=== PATIENT | male | born 1955 | race Caucasian/White ===

== ENCOUNTER 2016-11-09 13:58 | Inpatient (IN) | payer OTHER ==
[~2016-11-09] VITALS: Ht 195.6 cm; Wt 107.9 kg
[2016-11-09] MEDS ORDERED: NITROGLYCERIN OINT 2% 1GM PACKET ONE (14:03)
[2016-11-09] MEDS ORDERED: NITROGLYCERIN OINT 2% 1GM PACKET EXT ONE (14:15)
[2016-11-09 14:20] LABS: COMPLETE YES; EOS % 0.2 %; HEMATOCRIT 42.8 % (42-52); IG% 0.2 %; LYMPH % 11.3 %; LYMPH ABS # 1.27 K/uL (1.2-3.4); MEAN CELL VOLUME 99.8 fL (80-100); MEAN PLATELET VOLUME 9.1 fL (7.4-10.4); NEUT % 78.3 %; PLATELET COUNT 128 K/uL (130-400); RED BLOOD COUNT 4.29 M/uL (4.7-6.1); WHITE BLOOD COUNT 11.22 K/uL (4.8-10.8)
[2016-11-09 14:25] LABS: ISTAT IONIZED CALCIUM 1.14 mmol/l (1.12-1.32)
--- NOTE | 2016-11-09 14:26 | DIAGNOSTIC IMAGING REPORT ---
CHEST ONE VIEW PORTABLE CLINICAL HISTORY: Chest pain. COMPARISON STUDY: No previous studies for comparison. FINDINGS: Lung volumes are normal. There is no pneumothorax or pleural effusion. There is no evidence of pulmonary edema. There is mild cardiomegaly. No consolidation is identified. Mediastinal contours are normal. IMPRESSION: 1. No acute cardiopulmonary findings. 2. Mild cardiomegaly. Electronically signed by: Vinod Huston M.D. 11/09/2016 2:24 PM Dictated Date/Time: 11/09/2016 2:22 PM
[2016-11-09 14:31] LABS: PROTHROMBIN TIME (PATIENT) 10.6 SECONDS (9.0-12.0)
[2016-11-09 14:39] LABS: BUN/CREATININE RATIO 11.7 (10-20); CALCIUM 9.3 mg/dl (8.5-10.1); CREATININE 1.2 mg/dl (0.60-1.40); POTASSIUM 4.1 mmol/L (3.5-5.1)
[2016-11-09 14:45] VITALS: O2SAT 96; Ht 195.6 cm; Wt 107.9 kg
[2016-11-09] MEDS ORDERED: ASPIRIN 324 MG CHEW PO STA (14:47)
[2016-11-09] MEDS ORDERED: HEPARIN 25000 UNIT/500 ML D5W ONE (15:14)
[2016-11-09] MEDS ORDERED: HEPARIN SOD 5000 UNIT/0.5 ML CARP ONE (15:15)
[2016-11-09] MEDS ORDERED: MoRPHine SULFATE 2 MG/ML CARP IV PRN (15:30)
[2016-11-09] MEDS ORDERED: NITROGLYCERIN 0.4 MG SL PER TAB CHARGE SL PRN (15:30)
[2016-11-09] MEDS ORDERED: ONDANSETRON INJ 2 MG/ML 2 ML VIAL IV PRN (15:30)
[2016-11-09] MEDS ORDERED: METOPROLOL TARTRATE 25 MG TAB PO ONE (15:57)
--- NOTE | 2016-11-09 16:00 | History and Physical ---
History & Physical Date & Time of Service: Nov 09, 2016 at 15:42 Chief Complaint: Chest Pain Primary Care Physician: No Doctor, Assigned History of Present Illness Source: patient, family (daughter and at bedside) Mr Alejandro is a 61 yo male with no past medical or surgical history, ex-smoker ( 15 pack-years), currently chews tobacco who does not have any routine preventative medical care. Presented to his PCP today after developing what felt like heartburn yesterday and shortness of breath, EKG showed inferior STEMI , he was given 324mg aspirin and transferred to the ER. His symptoms started yesterday approximately 9:30am with shortness of breath and throat tightness that occurred while pulling a deer he had shot. The throat tightness he related to breathing cold air or heartburn pain. He took some tums and think it helped a little, exacerbated by lying down and no worse on exertion , severity at worse 3/10, the pain lasted throughout the entire yesterday without much waxing and waning and he has not had a recurrence today. His shortness of breath came on initially at at the same time, this was worse on even mild exertion and occurred at rest. He denies any orthopnea or PND that night. This morning he felt generally more tired than usual but denies shortness of breath, chest pain, orthopnea, PND, claudication or palpitations. Past Medical/Surgical History Medical Problems: (1) HTN (hypertension) Status: Chronic Social History Smoking Status: Former Smoker Smokeless Tobacco Use: Yes Alcohol Use: 1 can beer/day, occasional spirits once/month Drug Use: none Marital Status: Housing status: lives with significant other Allergies Coded Allergies: No Known Allergies (Unverified , 11/09/16) Review of Systems Constitutional: + sweats (see HPI), No chills, No fever Eyes: No worsening of vision Respiratory: + dyspnea at rest, + dyspnea on exertion, + shortness of breath, No cough, No hemoptysis, No sputum, No wheezing Cardiovascular: No PND, No chest pain (currently no chest pain), No claudication, No edema, No orthopnea, No palpitations Abdomen: No GI bleeding, No constipation, No diarrhea, No nausea, No pain, No vomiting Musculoskeletal: No joint pain, No muscle pain, No swelling Genitourinary - Male: No dysuria, No hematuria, No urinary frequency, No urinary urgency Endocrine: + fatigue (see HPI) Hematologic / Lymphatic: No abnormal bleeding/bruising Integumentary: No itch, No rash Physical Exam Vital Signs Date Time Temp Pulse Resp B/P Pulse Ox O2 Delivery O2 Flow Rate FiO2 11/09/16 14:45 96 Room Air 11/09/16 14:33 82 15 96 11/09/16 14:28 76 15 161/98 97 11/09/16 14:23 81 15 99 11/09/16 14:18 84 16 99 11/09/16 14:13 86 19 98 11/09/16 14:08 95 21 97 11/09/16 14:07 152/99 11/09/16 14:06 97 Room Air 11/09/16 14:03 95 11/09/16 14:03 87 18 97 11/09/16 13:59 175/106 11/09/16 13:57 98 Room Air 11/09/16 13:57 36.7 91 18 175/106 98 Room Air General Appearance: WD/WN, no apparent distress Head: normocephalic, atraumatic Eyes: normal inspection, PERRL, EOMI, sclerae normal ENT: normal ENT inspection, hearing grossly normal Neck: supple, no adenopathy, thyroid normal, no JVD, no carotid bruits, trachea midline Respiratory/Chest: chest non-tender, lungs clear, normal breath sounds, no respiratory distress, no accessory muscle use Cardiovascular: regular rate, rhythm, no edema, no JVD, no murmur, normal peripheral pulses Abdomen/GI: normal bowel sounds, non tender, soft, no organomegaly Back: normal inspection, no muscle spasm, + pertinent finding (no central spine tenderness) Extremities/Musculoskelatal: normal inspection, no calf tenderness, normal capillary refill, no pedal edema, normal range of motion, non-tender Neurologic/Psych: 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, no motor/sensory deficits, alert, normal mood/affect, oriented x 3 Skin: normal color, warm/dry, no rash Diagnostics Laboratory Results Results Past 24 Hours Test 11/09/16 14:05 11/09/16 14:09 11/09/16 14:12 11/09/16 15:36 Range/Units White Blood Count 11.22 4.8-10.8 K/uL Red Blood Count 4.29 4.7-6.1 M/uL Hemoglobin 15.0 14.0-18.0 g/dL Hematocrit 42.8 42-52 % Mean Corpuscular Volume 99.8 80-100 fL Mean Corpuscular Hemoglobin 35.0 25-34 pg Mean Corpuscular Hemoglobin Concent 35.0 32-36 g/dl Platelet Count 128 130-400 K/uL Mean Platelet Volume 9.1 7.4-10.4 fL Neutrophils (%) (Auto) 78.3 % Lymphocytes (%) (Auto) 11.3 % Monocytes (%) (Auto) 10.0 % Eosinophils (%) (Auto) 0.2 % Basophils (%) (Auto) 0.0 % Neutrophils # (Auto) 8.79 1.4-6.5 K/uL Lymphocytes # (Auto) 1.27 1.2-3.4 K/uL Monocytes # (Auto) 1.12 0.11-0.59 K/uL Eosinophils # (Auto) 0.02 0-0.5 K/uL Basophils # (Auto) 0.00 0-0.2 K/uL RDW Standard Deviation 45.8 36.4-46.3 fL RDW Coefficient of Variation 12.7 11.5-14.5 % Immature Granulocyte % (Auto) 0.2 % Immature Granulocyte # (Auto) 0.02 0.00-0.02 K/uL Prothrombin Time 10.6 9.0-12.0 SECONDS Prothromb Time International Ratio 1.0 0.9-1.1 Activated Partial Thromboplast Time 26.5 21.0-31.0 SECONDS Partial Thromboplastin Ratio 1.0 Sodium Level 139 136-145 mmol/L Potassium Level 4.1 3.5-5.1 mmol/L Chloride Level 103 98-107 mmol/L Carbon Dioxide Level 28 21-32 mmol/L Anion Gap 8.0 18.0 16-25 mmol/L Blood Urea Nitrogen 14 7-18 mg/dl Creatinine 1.20 0.60-1.40 mg/dl Est Creatinine Clear Calc Drug Dose 79.4 ml/min Estimated GFR () 74.1 Estimated GFR (Non- 64.0 BUN/Creatinine Ratio 11.7 10-20 Random Glucose 111 70-99 mg/dl Calcium Level 9.3 8.5-10.1 mg/dl Bedside Hemoglobin 15.0 14.0-18.0 g/dl Bedside Hematocrit 44 42-52 % Bedside Sodium 139 135-144 mEq/L Bedside Potassium 4.2 3.3-5.0 mEq/L Bedside Chloride 100 101-112 mEq/L Bedside Total CO2 27 24-31 mEq/l Bedside Blood Urea Nitrogen 15 7-18 mg/dl Bedside Creatinine 1.0 0.6-1.3 mg/dl Bedside Glucose (other) 113 70-99 mg/dl Bedside Ionized Calcium (Darlin) 1.14 1.12-1.32 mmol/l Bedside Troponin I 40.560 0-0.045 ng/ml Diagnostic Radiology CHEST ONE VIEW PORTABLE CLINICAL HISTORY: Chest pain. COMPARISON STUDY: No previous studies for comparison. FINDINGS: Lung volumes are normal. There is no pneumothorax or pleural effusion. There is no evidence of pulmonary edema. There is mild cardiomegaly. No consolidation is identified. Mediastinal contours are normal. IMPRESSION: 1. No acute cardiopulmonary findings. 2. Mild cardiomegaly. Electronically signed by: Vinod Huston M.D. 11/09/2016 2:24 PM Dictated Date/Time: 11/09/2016 2:22 PM EKG Normal sinus rhythm Inferior STEMI No previous ECGs available 89 bpm Impression Assessment and Plan 61 yo male without routine preventative care with heartburn like pain yesterday and shortness of breath on exertion presented to the ER with EKG showing inferior STEMI and raised troponin. STEMI - Consult cardiology - ER discussed with Dr Zavala and decided for heparin drip only. I also discussed with Dr Adan who will review chart to assess for emergent cath vs. tomorrow given no current symptoms. - Start heparin drip as per cardiology advice. - Echocardiogram stat now - Trend troponin - next at 16:00 if continues to rise will add Q8H otherwise repeat with morning labs - ASA 324mg given in primary care setting. 81mg daily starting tomorrow - Atorvastatin 80mg daily - Will start metoprolol 25 mg BID now given HTN - Fasting lipid panel and HbA1C with morning labs - Tobacco chew cessation - NPO except meds until seen by Dr Adan Hypertension - Start metoprolol 25 mg BID VTE Prophylaxis - on heparin drip Code - Full Disposition - Admission to telemetry due to s/p STEMI I agree with residents assessment and plan Pt presents with STEMI Asymptomatic at this time CVS - RRR, no m/r/g Cards consulted Likely cath in AM Level of Care Telemetry Advanced Directives Existing Advance Directive: Yes Existing Living Will: Yes 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 Y/N: Yes Risk Level: Moderate Given or contraindicated: Other Anticoagulation (heparin IV)
[2016-11-09 16:48] VITALS: BP 134/94; PULSE 85; TEMP 38; O2SAT 97
[2016-11-09] MEDS ORDERED: HEPARIN 25,000 UNIT/500ML D5W 500 ML IV PRN (18:00)
--- NOTE | 2016-11-09 19:19 | EMERGENCY ROOM VISIT NOTE ---
History Report prepared by Larryibaliya: Jeremiah Sanford Under the Supervision of: Dr. Tom Yun M.D. First contact with patient: 13:58 Chief Complaint: CHEST PAIN Stated Complaint: CHEST PAIN History of Present Illness The patient is a 61 year old male who presents to the Emergency Room with complaints of resolved chest discomfort that occurred yesterday. He describes that discomfort as an indigestion feeling in the middle of his upper chest. The patient was also diaphoretic and short of breath. The discomfort did not radiate to his arm or jaw. The patient's was getting ready to skin a deer when his symptoms began. He was dragging the deer prior to onset. The chest discomfort lasted about 6-8 hours, and resolved overnight. The patient is currently asymptomatic. He has not had any chest discomfort today. The patient denies any fevers, cough, abdominal pain, leg swelling or pain. He followed up with his PCP today, who referred him to the ED for an abnormal EKG. The patient has a history of hypertension. He denies any known family history of heart disease. Source of History: patient Onset: yesterday Position: chest Quality: other ("indigestion") Timing: resolved Associated Symptoms: + SOB, + diaphoresis, No abdominal pain, No cough, No fevers Review of Systems See HPI for pertinent positives & negatives. A total of 10 systems reviewed and were otherwise negative. Past Medical & Surgical Medical Problems: (1) Chest pain (2) HTN (hypertension) (3) Shortness of breath (4) STEMI (ST elevation myocardial infarction) Family History No family history of cardiac disease Social History Smoking Status: Former Smoker Allergies Coded Allergies: No Known Allergies (Unverified , 11/09/16) Physical Exam Vital Signs Date Time Temp Pulse Resp B/P Pulse Ox O2 Delivery O2 Flow Rate FiO2 11/09/16 15:28 159/102 11/09/16 15:08 85 16 97 11/09/16 14:58 161/99 11/09/16 14:45 96 Room Air 11/09/16 14:38 80 15 96 11/09/16 14:33 82 15 96 11/09/16 14:28 76 15 161/98 97 11/09/16 14:23 81 15 99 11/09/16 14:18 84 16 99 11/09/16 14:13 86 19 98 11/09/16 14:08 95 21 97 11/09/16 14:07 152/99 11/09/16 14:06 97 Room Air 11/09/16 14:03 95 11/09/16 14:03 87 18 97 11/09/16 13:59 175/106 11/09/16 13:57 98 Room Air 11/09/16 13:57 36.7 91 18 175/106 98 Room Air Physical Exam Constitutional: Vital signs reviewed. Eyes: Pupils are equal round reactive to light. Conjunctiva are noninjected. ENT: Pharynx is clear without erythema or exudate. Mucous membranes are moist. Neck supple without meningeal signs. Respiratory: Clear to auscultation bilaterally. Breath sounds are equal bilaterally. Cardiovascular: Regular rate and rhythm. No rubs or gallops. GI: Soft, nondistended and nontender. Bowel sounds are present. Musculoskeletal: No peripheral edema. No lower extremity tenderness. Integumentary: No cyanosis. Neurological: The patient is awake and alert. No focal deficits. Psychiatric: Normal affect. Medical Decision & Procedures ER Provider Diagnostic Interpretation: X-ray results as stated below per interpretation by me and the radiologist: CHEST ONE VIEW PORTABLE CLINICAL HISTORY: Chest pain. COMPARISON STUDY: No previous studies for comparison. FINDINGS: Lung volumes are normal. There is no pneumothorax or pleural effusion. There is no evidence of pulmonary edema. There is mild cardiomegaly. No consolidation is identified. Mediastinal contours are normal. IMPRESSION: 1. No acute cardiopulmonary findings. 2. Mild cardiomegaly. Electronically signed by: Vinod Huston M.D. 11/09/2016 2:24 PM Dictated Date/Time: 11/09/2016 2:22 PM Laboratory Results 11/09/16 14:05 Red Blood Count 4.29, Mean Corpuscular Volume 99.8, Mean Corpuscular Hemoglobin 35.0, Mean Corpuscular Hemoglobin Concent 35.0, Mean Platelet Volume 9.1, Neutrophils (%) (Auto) 78.3, Lymphocytes (%) (Auto) 11.3, Monocytes (%) (Auto) 10.0, Eosinophils (%) (Auto) 0.2, Basophils (%) (Auto) 0.0, Neutrophils # (Auto ) 8.79, Lymphocytes # (Auto) 1.27, Monocytes # (Auto) 1.12, Eosinophils # (Auto ) 0.02, Basophils # (Auto) 0.00 11/09/16 14:05 Test 11/09/16 14:05 11/09/16 14:09 11/09/16 14:12 White Blood Count 11.22 K/uL (4.8-10.8) Red Blood Count 4.29 M/uL (4.7-6.1) Hemoglobin 15.0 g/dL (14.0-18.0) Hematocrit 42.8 % (42-52) Mean Corpuscular Volume 99.8 fL (80-100) Mean Corpuscular Hemoglobin 35.0 pg (25-34) Mean Corpuscular Hemoglobin Concent 35.0 g/dl (32-36) Platelet Count 128 K/uL (130-400) Mean Platelet Volume 9.1 fL (7.4-10.4) Neutrophils (%) (Auto) 78.3 % Lymphocytes (%) (Auto) 11.3 % Monocytes (%) (Auto) 10.0 % Eosinophils (%) (Auto) 0.2 % Basophils (%) (Auto) 0.0 % Neutrophils # (Auto) 8.79 K/uL (1.4-6.5) Lymphocytes # (Auto) 1.27 K/uL (1.2-3.4) Monocytes # (Auto) 1.12 K/uL (0.11-0.59) Eosinophils # (Auto) 0.02 K/uL (0-0.5) Basophils # (Auto) 0.00 K/uL (0-0.2) RDW Standard Deviation 45.8 fL (36.4-46.3) RDW Coefficient of Variation 12.7 % (11.5-14.5) Immature Granulocyte % (Auto) 0.2 % Immature Granulocyte # (Auto) 0.02 K/uL (0.00-0.02) Prothrombin Time 10.6 SECONDS (9.0-12.0) Prothromb Time International Ratio 1.0 (0.9-1.1) Activated Partial Thromboplast Time 26.5 SECONDS (21.0-31.0) Partial Thromboplastin Ratio 1.0 Est Creatinine Clear Calc Drug Dose 79.4 ml/min Estimated GFR () 74.1 Estimated GFR (Non- 64.0 BUN/Creatinine Ratio 11.7 (10-20) Calcium Level 9.3 mg/dl (8.5-10.1) Magnesium Level 2.4 mg/dl (1.8-2.4) Bedside Hemoglobin 15.0 g/dl (14.0-18.0) Bedside Hematocrit 44 % (42-52) Bedside Sodium 139 mEq/L (135-144) Bedside Potassium 4.2 mEq/L (3.3-5.0) Bedside Chloride 100 mEq/L (101-112) Bedside Total CO2 27 mEq/l (24-31) Anion Gap 18.0 mmol/L (16-25) Bedside Blood Urea Nitrogen 15 mg/dl (7-18) Bedside Creatinine 1.0 mg/dl (0.6-1.3) Bedside Glucose (other) 113 mg/dl (70-99) Bedside Ionized Calcium (Darlin) 1.14 mmol/l (1.12-1.32) Bedside Troponin I 40.560 ng/ml (0-0.045) Laboratory results as reviewed by me. Medications Administered Medications (Trade) Dose Ordered Sig/Tyrone Route Start Time Stop Time Status Last Admin Dose Admin Nitroglycerin (Nitroglycerin 2% Oint) 1 inch NOW ONCE EXT 11/09/16 14:15 11/09/16 14:16 DC 11/09/16 14:12 1 INCH Heparin Sodium/ Dextrose 1 ea NOW STAT N/A 11/09/16 14:39 11/09/16 14:40 DC 11/09/16 15:15 1 EA Heparin Sodium/ Dextrose (Heparin 25,000 Unit/500ml D5W) 25,000 unit STK-MED ONCE .ROUTE 11/09/16 15:14 11/09/16 15:16 DC 11/09/16 15:22 25,000 UNIT Heparin Sodium (Porcine) (Heparin Sq 5000 Unit/0.5ml) 10,000 unit STK-MED ONCE .ROUTE 11/09/16 15:15 11/09/16 15:16 DC 11/09/16 15:19 8,000 UNIT ECG Indication: chest pain Rate (beats per minute): 89 Rhythm: normal sinus Findings: Q waves (Inferior), ST depression (I, AvL, V2), ST elevation (III, AvF) ED Course 1355: The patient was evaluated in room A1. A complete history and physical exam was performed. 1415: Nitroglycerin 2% 1 inch EXT. 1416: The patient is not having any symptoms. His blood pressure has also improved. 1436: Discussed the case with Dr. Zavala, [employer]. He says there is nothing to do at this point other than start the patient on Heparin and admit him to medicine. 1439: Heparin Sodium / Dextrose 1 ea. 1442: Spoke with Dr. Reynolds, [facility] hospitalist. The patient will be evaluated. 1508: Checked on the patient. His vital signs were stable. He is being evaluated by [facility]. Medical Decision This is a 61-year-old male presents with chest pain. Differential diagnosis includes acute IA, unstable angina, pneumothorax, pleurisy, pneumonia. I did perform a limited focused review of portions of the patient's old chart on the electronic medical record. The patient has had no prior visits to this hospital. I did provide prehospital medical command from patient. He does have Q waves inferiorly with ST elevations on prehospital EKG. I did not call a heart alert as the patient was completely asymptomatic. I did evaluate the patient immediately on arrival as noted above. He remains asymptomatic. The patient was placed on a continuous monitor technician. I did order and personally review the patient's 12-lead EKG and chest x-ray as described above. He has persistent ST elevations and Q waves in the inferior leads. There are some ST depressions in the lateral leads as well as V2. Again I did not call a heart alert as the patient is asymptomatic. Symptoms completely resolved yesterday. I did order and review the patient's blood work as noted in the electronic medical record. His troponin is 40. I did consult Dr. Zavala of cardiology. I did discuss the test results and EKG findings with him. As the patient was asymptomatic he does not feel he needed acute intervention nor stat echocardiogram. He recommended heparinization and hospitalization by the hospitalist service. I did reassess the patient multiple times. He remained asymptomatic here in the emergency department. He was given nitroglycerin paste. I did discuss risks and benefits of heparinization with the patient and his family was not the bedside. I did start patient on IV heparin. He was admitted to the hospitalist service. Consults Time Called: 1430 Consulting Physician: Dr. Zavala, [employer] Returned Call: [phone]: Discussed the case with Dr. Zavala, [employer]ting [employer]. He says there is nothing to do at this point other than start the patient on Heparin and admit him to medicine. Additional Consults: Time Called: 1438 Consulted Physician[facility]. [facility], [facility] Returned Call: [phone] Additional Comments: 1442: Spoke with Dr. Reynolds, [facility]. The patient will be evaluated. Impression Primary Impression: Acute myocardial infarction Critical Care I have personally spent greater than 30 minutes of critical care time in the direct management of this patient. This includes bedside care, interpretation of diagnostic studies, and testing, discussion with consultants, patient, and family members, and other required patient management activities. This 30 minutes is in excess of all separately billable procedures. Scribe Attestation The scribe's documentation has been prepared under my direct and personally reviewed by me in its entirety. I confirm that the note above accurately reflects all work, treatment, procedures, and medical decision making performed by me. Departure Information Dispostion Being Evaluated By Hospitalist Patient Instructions A Signature Page, [facility]
[2016-11-09 19:35] VITALS: BP 119/73; PULSE 84; TEMP 36.4; O2SAT 97
[2016-11-09] MEDS: ATORVASTATIN 40 MG TAB PO SCH (19:37)
[2016-11-09 20:00] VITALS: O2SAT 97
[2016-11-09 22:04] LABS: PARTIAL THROMBOPLASTIN RATIO 2.8
[2016-11-09] MEDS: ACETAMINOPHEN 325 MG TAB PO PRN (22:05)
[2016-11-09 23:58] VITALS: BP 117/72; PULSE 67; TEMP 36.7; O2SAT 95
[2016-11-10] VITALS (17 sets, daily range): BP systolic 94–161; BP diastolic 7–88; PULSE 64–82; TEMP 36.5–37.9; O2SAT 95–99
[2016-11-10 04:10] LABS: HEMATOCRIT 37.3 % (42-52); MEAN CELL VOLUME 100.5 fL (80-100); MEAN CORPUSCULAR HEMOGLOBIN 35.3 pg (25-34); MEAN CORPUSCULAR HGB CONC 35.1 g/dl (32-36); MEAN PLATELET VOLUME 9.4 fL (7.4-10.4); PLATELET COUNT 115 K/uL (130-400); RED BLOOD COUNT 3.71 M/uL (4.7-6.1); WHITE BLOOD COUNT 12.06 K/uL (4.8-10.8)
[2016-11-10 04:26] LABS: PARTIAL THROMBOPLASTIN RATIO 2.2
[2016-11-10 04:28] LABS: CALCIUM 8.6 mg/dl (8.5-10.1); CREATININE 1.1 mg/dl (0.60-1.40)
[2016-11-10 04:51] LABS: CHOLESTEROL/HDL RATIO 2.4
[2016-11-10 06:33] LABS: ESTIMATED AVERAGE GLUCOSE 103 mg/dl; HA1C FLAG Normal (Normal)
--- NOTE | 2016-11-10 07:02 | CARDIOLOGY CONSULTATION ---
DATE OF CONSULTATION: 11/09/2016 CONSULTATION REQUESTED BY: Dr. García. REASON FOR CONSULTATION: STEMI/late presenting STEMI. HISTORY OF PRESENT ILLNESS: Mr. Alejandro is a very pleasant 61-year-old man with no real significant past medical history, who presented to his primary care physician's office today with complaints of chest burning and shortness of breath the day prior to presentation. He was noted to have new inferior Q-waves and inferior ST elevations and was transferred emergently to [facility] ED. Cardiology consulted for further management. The patient states that he had been in his usual state of health up until the morning of the day prior to presentation. He had been out hunting, had shot a deer and was pulling the deer when he developed a burning chest discomfort that radiated to his neck. Pain at worst was 2/10, was associated with some shortness of breath and mild diaphoresis. Pain was intermittent over the rest of the course of the day. He took some antacids with potentially mild improvement. In the evening, he was feeling largely at his baseline and went to bed without any further discomfort. Again this morning, the patient denies any significant recurrent burning chest discomfort but due to concern regarding symptoms, decided to present to his PCP to get "his symptoms checked out." There, he had an EKG, which was concerning for potential inferior ST elevations and was transferred to the Emergency Department. In the Emergency Department, the patient was completely chest pain free. His initial EKG showed inferior Q-waves with evolving ST elevations. He was started on heparin, aspirin, received statin and beta-brigitte in the ED and cardiology was consulted. At the time of interview, again the patient denied any chest pain and stated he was feeling well. He did state that he was potentially, maybe a little more fatigued today when moving around, but otherwise no other new symptoms. PAST MEDICAL HISTORY: Denies any prior history of hypertension, hyperlipidemia, prior stroke, kidney dysfunction, prior surgeries. FAMILY HISTORY: Unaware of any significant premature coronary artery disease or sudden cardiac . SOCIAL HISTORY: Smoked for a period of 15 years, many years ago. Does chew tobacco now, drinks on occasion. REVIEW OF SYSTEMS: A 10-point review of systems was completed and otherwise negative unless stated in the HPI. PHYSICAL EXAMINATION: VITAL SIGNS: The patient was afebrile. Blood pressure was 133/111. His pulse was 74. He was satting 96% on room air. GENERAL: The patient appeared comfortable, was laughing, joking, in no acute distress. HEENT: His sclera was anicteric. His oropharynx was clear. His mucous membranes were moist. NECK: Supple with no lymphadenopathy. LUNGS: Clear to auscultation bilaterally. HEART: He had a regular rate and rhythm with no murmurs, rubs or gallops. ABDOMEN: Soft, nontender, nondistended with positive bowel sounds. EXTREMITIES: The extremities were warm. He had no significant lower extremity edema. He had intact distal pulses, including 2+ bilateral radial pulses. SKIN: His skin showed no rashes or lesions. NEUROLOGIC: Cranial nerves II-XII are grossly intact. The remainder of his exam was nonfocal. PSYCHIATRIC: He was alert and oriented x3. His mood and affect was appropriate. LABORATORY DATA: White blood cell count 11.2, hemoglobin 15, platelets of 128. INR 1.0. Sodium of 139, potassium 4.1, BUN 14, creatinine of 1.2. Initial troponin of 62.8. Chest x-ray showed no acute cardiopulmonary process. He had mild cardiomegaly. EKG showed normal sinus rhythm with inferoposterior ST elevations and inferior Q-waves without other ST changes. IMPRESSION AND PLAN: 1. Late presenting ST elevation myocardial infarction. 2. Hypertension. 3. Thrombocytopenia. The patient here more than 24 hours out from, what appears to be, inferoposterior STEMI. At present, the patient is completely chest pain free and hemodynamically and electrically stable. As such, no emergent indication for cardiac catheterization at this time. Will need catheterization at some point though to further evaluate coronary arteries. In the interim, though, would continue on heparin infusion. Continue on aspirin, high-dose statin and a beta brigitte. Discussed with the patient risks, benefits and alternatives of cardiac catheterization and he is willing to proceed. We will plan for cardiac catheterization in the a.m. If the patient were to develop any chest pain overnight, would plan for the procedure more urgently. Thank you for allowing us to participate in the care of this patient. Please contact with any questions.
[2016-11-10] MEDS: METOPROLOL TARTRATE 25 MG TAB PO SCH ×2 (08:12→20:00)
[2016-11-10] MEDS: ASPIRIN 81 MG ECTAB PO SCH (08:12)
--- NOTE | 2016-11-10 09:13 | Progress Note ---
Subjective Date of Service: Nov 10, 2016. (Raquel Garduno PA-C) Subjective Pt evaluation today including: conversation w/ patient, physical exam, chart review, lab review, review of studies, review of inpatient medication list Patient seen and evaluated. Reports mild chest and throat tightness with deep inspiration, ambulation, and straining that started at approx. 0200. Patient is currently sitting in bedside chair in no acute distress and without CP with normal inspiratory effort. Will repeat EKG and trop to evaluate further changes. EKG obtained with ST elevations remaining in II, III, and aVF. Repeat trop pending Discussed case with Dr. Easton in setting of EKG findings with pleuritic CP. Patient verbalizes no further complaints other then mentioned above. (Raquel Garduno PA-C) Problem List Medical Problems: (1) Acute myocardial infarction Status: Acute (Raquel Garduno PA-C) Review of Systems Constitutional: No chills, No fever Respiratory: + dyspnea on exertion, No cough, No dyspnea at rest Cardiac: + chest pain (throat and chest tightness with inspiration, valsalva, and ambulation) Abdomen: No constipation, No diarrhea, No nausea, No pain, No vomiting Musculoskeletal: No calf pain, No swelling Male : No dysuria Endo: No fatigue Skin: No rash (Raquel Garduno PA-C) Medications Current Inpatient Medications Medications (Trade) Dose Ordered Sig/Tyrone Route Start Time Stop Time Status Last Admin Dose Admin Acetaminophen (Tylenol Tab) 650 mg Q4H PRN PO 11/09/16 15:30 12/09/16 15:29 11/09/16 22:05 650 MG Ondansetron HCl (Zofran Inj) 4 mg Q6H PRN IV 11/09/16 15:30 12/09/16 15:29 Nitroglycerin (Nitrostat Tab) 0.4 mg UD PRN SL 11/09/16 15:30 12/09/16 15:29 Morphine Sulfate (MoRPHine SULFATE INJ) 2 mg Q30M PRN IV 11/09/16 15:30 11/23/16 15:29 Aspirin (Ecotrin Tab) 81 mg QAM PO 11/10/16 09:00 12/10/16 08:59 11/10/16 08:12 81 MG Atorvastatin Calcium (Lipitor Tab) 80 mg QPM PO 11/09/16 21:00 12/09/16 20:59 11/09/16 19:37 80 MG Metoprolol Tartrate 25 mg 25 mg BID PO 11/10/16 09:00 12/10/16 08:59 11/10/16 08:12 25 MG Heparin Sodium/ Dextrose (Heparin 25,000 Unit/500ml D5W) 500 ml @ 33 mls/hr [id number] PRN IV 11/09/16 18:00 12/09/16 17:59 11/10/16 06:20 33 MLS/HR (Raquel Garduno, LEXY) Objective Vital Signs Date Time Temp Pulse Resp B/P Pulse Ox O2 Delivery O2 Flow Rate FiO2 11/10/16 08:06 36.6 73 18 124/81 99 11/10/16 06:58 Room Air 11/10/16 04:00 96 Room Air 11/10/16 03:20 36.9 82 18 122/77 96 Room Air 11/10/16 00:01 95 Room Air 11/09/16 23:58 36.7 67 17 117/72 95 Room Air 11/09/16 20:00 97 Room Air 11/09/16 19:35 36.4 84 18 119/73 97 Room Air 11/09/16 16:48 38.0 85 20 134/94 97 Room Air 11/09/16 16:29 79 17 159/98 98 11/09/16 16:28 75 18 133/111 98 11/09/16 16:24 75 14 97 11/09/16 16:19 78 15 97 11/09/16 16:14 82 18 98 11/09/16 16:09 91 19 94 11/09/16 16:04 82 21 95 11/09/16 15:59 133/111 11/09/16 15:38 74 13 96 11/09/16 15:28 159/102 11/09/16 15:08 85 16 97 11/09/16 14:58 161/99 11/09/16 14:45 96 Room Air 11/09/16 14:38 80 15 96 11/09/16 14:33 82 15 96 11/09/16 14:28 76 15 161/98 97 11/09/16 14:23 81 15 99 11/09/16 14:18 84 16 99 11/09/16 14:13 86 19 98 11/09/16 14:08 95 21 97 11/09/16 14:07 152/99 11/09/16 14:06 97 Room Air 11/09/16 14:03 95 11/09/16 14:03 87 18 97 11/09/16 13:59 175/106 11/09/16 13:57 98 Room Air 11/09/16 13:57 36.7 91 18 175/106 98 Room Air (Raquel Garduno PA-C) Physical Exam General Appearance: WD/WN, no apparent distress Eyes: sclerae normal ENT: hearing grossly normal Neck: supple, no JVD, no carotid bruits, trachea midline Respiratory/Chest: lungs clear, normal breath sounds, no respiratory distress, no accessory muscle use Cardiovascular: regular rate, rhythm, no gallop, no murmur Abdomen: normal bowel sounds, non tender, soft Extremities: no pedal edema, no calf tenderness Neurologic/Psychiatric: alert, oriented x 3 Skin: normal color, warm/dry (Raquel Garduno, PA-C) Laboratory Results Last 24 Hours Test 11/09/16 14:05 11/09/16 14:09 11/09/16 14:12 11/09/16 15:53 White Blood Count 11.22 K/uL Red Blood Count 4.29 M/uL Hemoglobin 15.0 g/dL Hematocrit 42.8 % Mean Corpuscular Volume 99.8 fL Mean Corpuscular Hemoglobin 35.0 pg Mean Corpuscular Hemoglobin Concent 35.0 g/dl Platelet Count 128 K/uL Mean Platelet Volume 9.1 fL Neutrophils (%) (Auto) 78.3 % Lymphocytes (%) (Auto) 11.3 % Monocytes (%) (Auto) 10.0 % Eosinophils (%) (Auto) 0.2 % Basophils (%) (Auto) 0.0 % Neutrophils # (Auto) 8.79 K/uL Lymphocytes # (Auto) 1.27 K/uL Monocytes # (Auto) 1.12 K/uL Eosinophils # (Auto) 0.02 K/uL Basophils # (Auto) 0.00 K/uL RDW Standard Deviation 45.8 fL RDW Coefficient of Variation 12.7 % Immature Granulocyte % (Auto) 0.2 % Immature Granulocyte # (Auto) 0.02 K/uL Prothrombin Time 10.6 SECONDS Prothromb Time International Ratio 1.0 Activated Partial Thromboplast Time 26.5 SECONDS Partial Thromboplastin Ratio 1.0 Sodium Level 139 mmol/L Potassium Level 4.1 mmol/L Chloride Level 103 mmol/L Carbon Dioxide Level 28 mmol/L Anion Gap 8.0 mmol/L 18.0 mmol/L Blood Urea Nitrogen 14 mg/dl Creatinine 1.20 mg/dl Est Creatinine Clear Calc Drug Dose 79.4 ml/min Estimated GFR () 74.1 Estimated GFR (Non- 64.0 BUN/Creatinine Ratio 11.7 Random Glucose 111 mg/dl Calcium Level 9.3 mg/dl Magnesium Level 2.4 mg/dl Bedside Hemoglobin 15.0 g/dl Bedside Hematocrit 44 % Bedside Sodium 139 mEq/L Bedside Potassium 4.2 mEq/L Bedside Chloride 100 mEq/L Bedside Total CO2 27 mEq/l Bedside Blood Urea Nitrogen 15 mg/dl Bedside Creatinine 1.0 mg/dl Bedside Glucose (other) 113 mg/dl Bedside Ionized Calcium (Darlin) 1.14 mmol/l Bedside Troponin I 40.560 ng/ml Troponin I 62.800 ng/ml Test 11/09/16 21:30 11/09/16 22:50 11/10/16 03:56 11/10/16 08:25 Activated Partial Thromboplast Time 73.2 SECONDS 58.4 SECONDS Partial Thromboplastin Ratio 2.8 2.2 Troponin I 56.400 ng/ml 50.800 ng/ml White Blood Count 12.06 K/uL Red Blood Count 3.71 M/uL Hemoglobin 13.1 g/dL Hematocrit 37.3 % Mean Corpuscular Volume 100.5 fL Mean Corpuscular Hemoglobin 35.3 pg Mean Corpuscular Hemoglobin Concent 35.1 g/dl RDW Standard Deviation 46.7 fL RDW Coefficient of Variation 12.7 % Platelet Count 115 K/uL Mean Platelet Volume 9.4 fL Sodium Level 138 mmol/L Potassium Level 4.0 mmol/L Chloride Level 103 mmol/L Carbon Dioxide Level 26 mmol/L Anion Gap 9.0 mmol/L Blood Urea Nitrogen 15 mg/dl Creatinine 1.10 mg/dl Est Creatinine Clear Calc Drug Dose 86.6 ml/min Estimated GFR () 82.4 Estimated GFR (Non- 71.1 BUN/Creatinine Ratio 14.0 Random Glucose 129 mg/dl Estimated Average Glucose 103 mg/dl Hemoglobin A1c 5.2 % Calcium Level 8.6 mg/dl Triglycerides Level 84 mg/dl Cholesterol Level 160 mg/dl HDL Cholesterol 66 mg/dl LDL Cholesterol, Calculated 77 mg/dl VLDL Cholesterol, Calculated 17 mg/dl Cholesterol/HDL Ratio 2.4 (Raquel Garduno, PA-C) Assessment and Plan Mr. Alejandro is a 61 yo male with an unremarkable PMHx who presented for throat and chest burning and HARRIS with EKG significant for STEMI and elevated troponins STEMI: - Assessment - patient reports pleuritic chest pain that started this AM around 0200 described as tightness in the throat and chest present only with deep inspiration, ambulation, and straining with urination -- EKG stat (11/10) - ST elevations remain in leads II, III, and aVF -- Discussed case with Dr. Easton in passing and review of trops and previous EKG as likely inflammatory in nature - consideration for Toradol for symptom relief - Imaging and Studies -- CXR (11/09) - image and report reviewed - unremarkable -- Trops - peak of 62.8 and trending down - will repeat x 1 in setting of chest/throat tightness -- Lipid panel and HbA1c - unremarkable - Heparin gtt infusing per protocol - Echo - report pending - viewed U/S which shows inferior wall dysfunction without thinning of pericardium suggesting acute process - ASA 81 mg daily - Atorvastatin 80 mg daily - Metoprolol 25 mg BID - Cardiology following - plan for possible Cath in AM HTN: - Metoprolol 25 mg BID DVT Prophylaxis: - Current Heparin gtt Code Status: - FULL RESUSCITATION Disposition - Plan for possible cath today (Raquel Garduno, LUKE-C) PA Physician Supervision Note: I interviewed and examined the patient. Discussed with Raquel BUTLER and agree with findings and plan as documented in the note. Any exceptions or clarifications are listed here: None this pt does have some throat pain and some pleuritic chest pain component, troponins are high but coming down, cardiology is involved with decision making process vitals stable ecg suggests inferior mi but some Q's question chronicity car is regular without murmur lungs are clear STemi, on heparin and asa, b brigitte and statin, cardiology is involved in decision making Documented By: Tom Etienne (Tom Etienne M.D.)
[2016-11-10] MEDS ORDERED: HEPARIN SOD (PORCINE) 1000 UNIT/ML 10 ML VIAL ONE (14:33)
[2016-11-10] MEDS ORDERED: FENTANYL CITRATE INJ 50 MCG/1 ML 2 ML VIAL ONE (14:33)
[2016-11-10] MEDS ORDERED: NiCARDipine HCL INJ 2.5 MG/ML 10 ML AMP ONE (14:33)
[2016-11-10] MEDS ORDERED: MIDAZOLAM HCL 1 MG/ML 2ML VIAL ONE (14:33)
[2016-11-10] MEDS ORDERED: ACETAMINOPHEN 325 MG TAB PO PRN (16:00)
--- NOTE | 2016-11-10 16:05 | Procedure Note ---
Pre-Mod Sedation Assessment General Date of Moderate Sedation: Nov 10, 2016. Vital Signs: Vital Signs Past 12 Hours Date Time Temp Pulse Resp B/P Pulse Ox O2 Delivery O2 Flow Rate FiO2 11/10/16 15:54 36.8 67 137/88 96 Room Air 11/10/16 15:46 68 16 123/74 97 Room Air 11/10/16 15:41 66 16 119/73 97 Room Air 11/10/16 15:36 67 16 108/71 97 Room Air 11/10/16 15:31 66 18 121/78 97 Nasal Cannula 3 11/10/16 12:00 Room Air 11/10/16 11:29 36.7 64 18 124/68 98 11/10/16 08:06 36.6 73 18 124/81 99 11/10/16 08:00 Room Air 11/10/16 06:58 Room Air Review Cardiovascular: regular rate, rhythm, no edema, no gallop, no JVD Abdomen: normal bowel sounds, non tender, soft Lungs: lungs clear, normal breath sounds Airway Class: II Pre-Sedation Airway Assessment Oral Cavity: WNL Able to Visualize Vocal Cords: No Short Thick Neck: No Hx of Sleep Apnea: No Smoking Status: Former Smoker Mallampati Classification: Class II ASA Classification: Class III Procedure Planning Contraindications-for Mod Sed: None Yes Notes The planned sedation has been discussed with the patient and consent obtained. I have identified the patient, determined the appropriateness of sedation and have assessed the patient immediately prior to the procedure. All medicine(s) and interventions are by my order.
--- NOTE | 2016-11-10 16:06 | Procedure Note ---
Post-Mod Sedation Assessment General Date of Moderate Sedation Nov 10, 2016. Vital Signs: Vital Signs Past 12 Hours Date Time Temp Pulse Resp B/P Pulse Ox O2 Delivery O2 Flow Rate FiO2 11/10/16 15:54 36.8 67 137/88 96 Room Air 11/10/16 15:46 68 16 123/74 97 Room Air 11/10/16 15:41 66 16 119/73 97 Room Air 11/10/16 15:36 67 16 108/71 97 Room Air 11/10/16 15:31 66 18 121/78 97 Nasal Cannula 3 11/10/16 12:00 Room Air 11/10/16 11:29 36.7 64 18 124/68 98 11/10/16 08:06 36.6 73 18 124/81 99 11/10/16 08:00 Room Air 11/10/16 06:58 Room Air Review - Discharge Criteria Vital Signs Stable: Yes Alert/Oriented/Conversant: Yes Returned to Baseline Mental St: Yes Nausea Absent/Minimal: Yes Pain/Discomfort/Absent/Minimal: Yes Normal/Baseline Respirations: Yes Active Bleeding?: No Pt Received D/C Instructions: N/A Prescriptions Given: None Specific Proced. D/C Criteria Distal Pulses Present (Cardiac: Yes Groin site assessed-Card Cath: N/A Voided Prior To Discharge: N/A Discharged Patients Adult Escort/Transportation: Yes
--- NOTE | 2016-11-10 16:29 | Cardiac Catheterization ---
Procedure Note Procedure Date Nov 10, 2016. Pre-Procedure Diagnosis STEMI AUC Score 7 Post-Procedure Diagnosis Severe CAD, Normal Intracardiac Pressures Procedure(s) Performed Coronary Angiography, Left Heart Cath [employer]ist Dr. Adan Agile Developer(s) Cole Estimated Blood Loss 10 Medication(s) Fentanyl, Heparin, Nicardipine, Nitroglycerin, Versed, Lidocaine 1% Summary of Findings Indication: Late presenting STEMI (>24 hours) Access: 6Fr right radial artery Catheters: Vest Findings: LM - Normal LAD - Moderate sized vessel, supplies apex. Mid 30% stenosis, distal luminal irregularities. Small 1st diagonal with 70% ostial stenosis Circumflex - Moderate sized, tortuous, non-dominant. Luminal irregularities RCA - Completely occluded at the beginning of the mid segment. No distal collaterals LVEDP - 14 Arterial Closure: TR Band Summary: 1. Severe single vessel coronary artery disease - Complete occlusion of early mid RCA - late presenting STEMI > 24 hrs - Small D1 with moderate to severe disease - best managed medically 2. Normal intracardiac filling pressures Recommendations: Late presenting STEMI with occluded mid RCA. As chest pain free, troponin downtrending, hemodynamically and electrically stable - intervention contraindicated in current subacute period --> recommend continued medical management. Return to telemetry for continued monitoring Can discontinue heparin Load with plavix 300 mg now. 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 Start PPI Cardiac rehab as an outpatient Close cardiology follow-up on discharge. If persistent symptoms down the road may be a candidate for CLIENT APPLICATION SUPPORT SPECIALIST intervention after 30 days. Hemodynamics Rest Ao: 90/53/71 Final Ao: 96/60/76 LV: 102/14 Recommendations Medical therapy and/or Counseling Specimens None Radiation Exposure (mGy) 166 Contrast (mls) 35 Opti Fluids (cc crystalloids) 32 Drains none Anesthesia moderate Procedural Complication(s) None Disposition PCU ACC Data Cardiac Status Clinical evaluation leading to the procedure CAD Presntation: STEMI STEMI or Non-STEMI: Symptom Onset Date/Time: 11/08/2016 09:30 Thrombolytics: No Anginal Classification: No symptoms Heart Failure: No Cardiogenic Shock w/in 24Hrs: No Cardiac Arrest w/in 24Hrs: No Imaging studies past 6 months: Yes Stress studies past 6 months: No Standard Exercise Stress Test: No Stress Echocardiogram: No Stress Testing w/SPECT MPI: No Cardiac CTA: No Coronary Anatomy Dominant: Right Left Main (% Stenosis): Normal LAD (% Stenosis): Mid (30) D1 (% Stenosis): Ostial (70) Circumflex (% Stenosis): Normal RCA (% Stenosis): Mid (100%) Diagnostic Physician's Name: Ru Adan MD Status: Elective Closure Device Percutaneous Entry Location: Radial Closure Device: Radial Band Recommendations: Medical therapy and/or Counseling Intraprocedure Events Significant Dissection: No Perforation: No
[2016-11-10] MEDS ORDERED: SODIUM CHLORIDE 0.9% 1000ML 1,000 ML IV SCH (17:00)
[2016-11-10] MEDS ORDERED: CLOPIDOGREL BISULFATE 300 MG TAB PO STA (17:14)
--- NOTE | 2016-11-10 17:56 | ECHOCARDIOGRAM REPORT ---
*NOTICE TO RECEIVING REPUBLICAN AGENCY This information is strictly Confidential and protected under [place] law. [place] law prohibits you from making any further disclosure of this information unless further disclosure is expressly permitted by the written consent of the person to whom it pertains or is authorized by law. A general authorization for the release of medical or other information is not sufficient for this purpose. Hospital accepts no responsibility if the information is made available to any other person, INCLUDING THE PATIENT. Interpretation Summary * Name: MARITZA CROFT Study Date: 11/10/2016 07:20 AM BP: 122/77 mmHg * Patient Location: C.2T\S\E215\S\1 HR: 81 * : 1955 (M/d/yyyy) Gender: Male Height: 76 in * Age: 61 yrs Ethnicity: [place] Weight: 235 lb * Ordering Physician: Darrell García * Performed By: Jeanne Rausch RCS * * Reason For Study: AMI / STEMI / SOB / CHEST PAIN * BSA: 2.4 m2 * Mildly reduced overall left ventricular systolic function. Basal inferior akinesis of the left ventricle. Basal septal and posterior hypokinesis. * Mild concentric left ventricular hypertrophy. * Left ventricular diastolic dysfunction. * Moderate right atrial dilatation. * Mild right ventricular dilatation with mild right ventricular systolic dysfunction. * Moderate mitral regurgitation. * Trace pulmonic regurgitation. * Trace tricuspid regurgitation. * Elevated central venous pressure. * -- Conclusions -- * Aortic valve sclerosis mild, without significant aortic valvular stenosis. Procedure Details * A complete two-dimensional transthoracic echocardiogram was performed (2D, M-mode, Doppler and color flow Doppler). Left Ventricle * The left ventricle is normal in size. * There is mild concentric left ventricular hypertrophy. * Ejection Fraction = 40-45%. * A full diastolic examination was done with clinical findings of Class I diastolic dysfunction. * Left ventricular systolic function is mild to moderately reduced. * Basal posterior hypokinesis. Basal septal hypokinesis. Basal inferior akinesis. Right Ventricle * The right ventricle is mildly dilated. * The right ventricular systolic function is mildly reduced. Atria * The left atrial size is normal. * The right atrium is moderately dilated. Mitral Valve * The mitral valve is normal. * There is moderate mitral regurgitation. Tricuspid Valve * The tricuspid valve is normal. * There is trace tricuspid regurgitation. Aortic Valve * The aortic valve is trileaflet. * The aortic valve opens well. * Aortic valve sclerosis mild, without significant aortic valvular stenosis. * No aortic regurgitation is present. Pulmonic Valve * The pulmonic valve is not well visualized. * Trace pulmonic valvular regurgitation. Great Vessels * Borderline aortic root dilatation. Pericardium/Pleural * There is no pericardial effusion. Great Vessels * The inferior vena cava is mildly dilated. MMode 2D Measurements and Calculations IVSd 1.2 cm IVSs 1.5 cm LVIDd 4.6 cm LVIDs 3.9 cm LVPWd 1.3 cm LVPWs 1.4 cm IVS/LVPW 0.97 FS 16.1 % EDV(Teich) 99.3 ml ESV(Teich) 65.6 ml EF(Teich) 33.9 % EDV(cubed) 99.9 ml ESV(cubed) 59.0 ml EF(cubed) 40.9 % % IVS thick 18.4 % % LVPW thick 9.8 % LV mass(C)d 220.9 grams LV mass(C)dI 93.1 grams/m\S\2 LV mass(C)s 207.4 grams LV mass(C)sI 87.4 grams/m\S\2 SV(Teich) 33.7 ml SI(Teich) 14.2 ml/m\S\2 SV(cubed) 40.8 ml SI(cubed) 17.2 ml/m\S\2 Ao root diam 4.0 cm Ao root area 12.6 cm\S\2 ACS 2.5 cm LA dimension 3.7 cm LA/Ao 0.94 LVOT diam 1.8 cm LVOT area 2.6 cm\S\2 LVAd ap4 36.7 cm\S\2 LVLd ap4 8.7 cm EDV(MOD-sp4) 125.7 ml EDV(sp4-el) 132.4 ml LVAs ap4 26.4 cm\S\2 LVLs ap4 7.3 cm ESV(MOD-sp4) 77.9 ml ESV(sp4-el) 80.7 ml EF(MOD-sp4) 38.0 % EF(sp4-el) 39.1 % LVAd ap2 41.4 cm\S\2 LVLd ap2 9.4 cm EDV(MOD-sp2) 149.6 ml EDV(sp2-el) 155.3 ml LVAs ap2 26.4 cm\S\2 LVLs ap2 7.5 cm ESV(MOD-sp2) 79.3 ml ESV(sp2-el) 78.8 ml EF(MOD-sp2) 47.0 % EF(sp2-el) 49.2 % LVLd %diff 7.7 % EDV(MOD-bp) 140.6 ml LVLs %diff 2.6 % ESV(MOD-bp) 78.2 ml EF(MOD-bp) 44.3 % SV(MOD-sp4) 47.8 ml SI(MOD-sp4) 20.2 ml/m\S\2 SV(MOD-sp2) 70.4 ml SI(MOD-sp2) 29.7 ml/m\S\2 SV(MOD-bp) 62.3 ml SI(MOD-bp) 26.3 ml/m\S\2 SV(sp4-el) 51.7 ml SI(sp4-el) 21.8 ml/m\S\2 SV(sp2-el) 76.4 ml SI(sp2-el) 32.2 ml/m\S\2 Doppler Measurements and Calculations MV E max windy 54.5 cm/sec MV A max windy 69.6 cm/sec MV E/A 0.78 MV P1/2t max windy 74.2 cm/sec MV P1/2t 90.9 msec MVA(P1/2t) 2.4 cm\S\2 MV dec slope 239.2 cm/sec\S\2 MV dec time 0.31 sec Ao V2 max 116.5 cm/sec Ao max PG 5.4 mmHg Ao max PG (full) 1.8 mmHg LASHAY(V,A) 2.1 cm\S\2 LASHAY(V,D) 2.1 cm\S\2 LV V1 max PG 3.6 mmHg LV V1 max 94.7 cm/sec MR max windy 503.9 cm/sec MR max PG 101.5 mmHg PA V2 max 90.6 cm/sec PA max PG 3.3 mmHg
[2016-11-10] MEDS: ACETAMINOPHEN 325 MG TAB PO PRN (20:00)
[2016-11-10] MEDS: ATORVASTATIN 40 MG TAB PO SCH (20:01)
[2016-11-10] MEDS ORDERED: NURSING VERBAL MED ORDER ONE (23:30)
[2016-11-11] VITALS (8 sets, daily range): BP systolic 103–127; BP diastolic 57–83; PULSE 69–78; TEMP 36.4–36.8; O2SAT 94–100
[2016-11-11 05:07] LABS: HEMATOCRIT 36.4 % (42-52); MEAN CELL VOLUME 101.4 fL (80-100); MEAN CORPUSCULAR HEMOGLOBIN 35.4 pg (25-34); MEAN PLATELET VOLUME 9.8 fL (7.4-10.4); PLATELET COUNT 108 K/uL (130-400); RED BLOOD COUNT 3.59 M/uL (4.7-6.1); WHITE BLOOD COUNT 12.38 K/uL (4.8-10.8)
[2016-11-11 05:26] LABS: MEAN CORPUSCULAR HGB CONC 34.9 g/dl (32-36)
[2016-11-11 05:35] LABS: PARTIAL THROMBOPLASTIN RATIO 1.2
[2016-11-11] MEDS: ASPIRIN 81 MG ECTAB PO SCH (08:29)
[2016-11-11] MEDS: CLOPIDOGREL BISULFATE 75 MG TAB PO SCH (09:34)
[2016-11-11] MEDS ORDERED: PLV75 PO (09:59)
[2016-11-11] MEDS ORDERED: LPT40 PO (09:59)
[2016-11-11] MEDS ORDERED: ASPEC81 PO (09:59)
--- NOTE | 2016-11-11 10:01 | Discharge Instructions ---
Discharge Instructions Admission Reason for Admission: Chest Pain, Shortness Of Breath, Stemi Discharge Discharge Diagnosis / Problem: inferior wall heart attack Discharge Goals Goal(s): Diagnostic testing, Therapeutic intervention Activity Recommendations Activity Limitations: as noted below no intentional exercise until released by Cardiology . Instructions / Follow-Up Instructions / Follow-Up Home Care: * Take your medications exactly as directed. Don't skip doses. * Remember that recovery after a heart attack takes time. Plan to rest for at lease 4-8 weeks while you recover. Then return to normal activity when your doctor says it's okay. * Ask your doctor about joining a heart rehabilitation program. * Tell your doctor if you are feeling depressed. Feelings of sadness are common after a heart attack, but it is important that you speak to someone if you are feeling overwhelmed by these feelings. * If you are having chest pain, call 911 for an ambulance. Do NOT drive yourself to the hospital. * Ask your family members to learn CPR. * Learn to take your own blood pressure and pulse. Keep a record of your results. Ask your doctor when you should seek emergency medical attention. He or she will tell you which blood pressure reading is dangerous. Lifestyle Changes: * Maintain a healthy weight. Get help to lose any extra pounds. * Cut back on salt. * Limit canned, dried, packaged, and fast foods. * Don't add salt to your food. * Season foods with herbs instead of salt when you cook. * Break the smoking habit. Enroll in a stop-smoking program to improve your chances of success. * Limit fatty foods. * Check your lipid levels regularly. (Your doctor can show you how to do this.) * Build up your activity according to your doctor's recommendation. * Ask your doctor when it's okay to resume sexual activity. * Tell your doctor about any erectile dysfunction (ED) medication you are taking. Some ED medications are not safe if you take certain heart medications. * Try to manage stress. Follow Up: It is important for you to keep your follow up appointments with your medical provider. Current Hospital Diet Patient's current hospital diet: AHA Diet (Heart Healthy) Discharge Diet Recommended Diet: Regular Diet, AHA Diet (Heart Healthy) Pending Studies Studies pending at discharge: no Laboratory Results Hemoglobin A1c Test 11/10/16 03:56 Range/Units Estimated Average Glucose 103 mg/dl Hemoglobin A1c 5.2 4.5-5.6 % Lipid Panel Test 11/10/16 03:56 Range/Units Triglycerides Level 84 0-150 mg/dl Cholesterol Level 160 0-200 mg/dl HDL Cholesterol 66 mg/dl Cholesterol/HDL Ratio 2.4 LDL Cholesterol, Calculated 77 mg/dl Medical Emergencies . Who to Call and When: Medical Emergencies: If at any time you feel your situation is an emergency, please call 911 immediately. Call 911 immediately or go to your nearest Emergency Room if you experience any of the following: Warning Signs and Symptoms of a Heart Attack * Chest pain that is not relieved by medication * Shortness of breath . Non-Emergent Contact Non-Emergency issues call your: Manager Policy . . "Provider Documentation" section prepared by Tom Etienne. AMI Core Measures Reason no ASA as I/P: Treatment provided - N/A Reason no ASA at D/C: Treatment provided - N/A Reason no statin as I/P: Treatment provided - N/A Reason no statin at D/C: Treatment provided - N/A VTE Core Measure Inpt VTE Proph given/why not?: Other Anticoagulation (heparin IV)
--- NOTE | 2016-11-11 14:35 | Progress Note ---
Subjective Date of Service: Nov 11, 2016. (Raquel Garduno PA-C) Subjective Pt evaluation today including: conversation w/ patient, conversation w/ family , physical exam, chart review, lab review, review of studies, review of inpatient medication list Patient seen and evaluated. EKG reveals heart block. Patient asymptomatic Reports that he still gets pleuritic chest pain but seems to take more to precipitate the discomfort. Verbalizes no other complaints at this time. (Raquel Garduno PA-C) Problem List Medical Problems: (1) Acute myocardial infarction Status: Acute (Raquel Garduno PA-C) Review of Systems Constitutional: No chills, No fever Respiratory: No cough, No shortness of breath Cardiac: + chest pain (pleuritic and intermittent) Abdomen: No constipation, No diarrhea, No nausea, No pain, No vomiting Musculoskeletal: No calf pain, No swelling Male : No dysuria Heme: No abnormal bleeding/bruising Skin: No rash (Raquel Garduno PA-C) Medications Current Inpatient Medications Medications (Trade) Dose Ordered Sig/Tyrone Route Start Time Stop Time Status Last Admin Dose Admin Acetaminophen (Tylenol Tab) 650 mg Q4H PRN PO 11/09/16 15:30 12/09/16 15:29 11/10/16 20:00 650 MG Ondansetron HCl (Zofran Inj) 4 mg Q6H PRN IV 11/09/16 15:30 12/09/16 15:29 Nitroglycerin (Nitrostat Tab) 0.4 mg UD PRN SL 11/09/16 15:30 12/09/16 15:29 Morphine Sulfate (MoRPHine SULFATE INJ) 2 mg Q30M PRN IV 11/09/16 15:30 11/23/16 15:29 Aspirin (Ecotrin Tab) 81 mg QAM PO 11/10/16 09:00 12/10/16 08:59 11/11/16 08:29 81 MG Atorvastatin Calcium (Lipitor Tab) 80 mg QPM PO 11/09/16 21:00 12/09/16 20:59 11/10/16 20:01 80 MG Clopidogrel Bisulfate (plAVix TAB) 75 mg QAM PO 11/11/16 09:00 12/11/16 08:59 11/11/16 09:34 75 MG Metoprolol Tartrate (Lopressor Tab) 12.5 mg BID PO 11/11/16 21:00 12/11/16 20:59 (Raquel Garduno PA-C) Objective Vital Signs Date Time Temp Pulse Resp B/P Pulse Ox O2 Delivery O2 Flow Rate FiO2 11/11/16 11:18 36.8 78 16 118/63 99 11/11/16 07:55 36.8 71 18 113/57 96 11/11/16 07:30 Room Air 11/11/16 04:00 36.5 72 18 110/72 97 Room Air 11/11/16 04:00 Room Air 11/11/16 00:00 Room Air 11/10/16 23:34 37.0 67 18 105/71 96 Room Air 11/10/16 20:56 36.5 73 18 94/64 95 Room Air 11/10/16 20:00 Room Air 11/10/16 20:00 77 11/10/16 19:45 37.9 78 18 114/70 96 Room Air 11/10/16 19:06 75 16 130/78 95 Room Air 11/10/16 18:02 76 16 140/71 98 Room Air 11/10/16 17:32 73 16 161/78 95 Room Air 11/10/16 17:04 73 16 138/70 96 Room Air 11/10/16 16:49 72 16 128/76 98 Room Air 11/10/16 16:29 73 16 129/74 96 Room Air 11/10/16 16:11 65 16 145/85 98 Room Air 11/10/16 16:00 Room Air 11/10/16 15:54 36.8 67 137/88 96 Room Air 11/10/16 15:46 68 16 123/74 97 Room Air 11/10/16 15:41 66 16 119/73 97 Room Air 11/10/16 15:36 67 16 108/71 97 Room Air 11/10/16 15:31 66 18 121/78 97 Nasal Cannula 3 (Raquel Garduno PA-C) Physical Exam General Appearance: WD/WN, no apparent distress Eyes: sclerae normal ENT: hearing grossly normal Neck: supple, trachea midline Respiratory/Chest: lungs clear, normal breath sounds, no respiratory distress, no accessory muscle use Cardiovascular: regular rate, rhythm, no gallop, no murmur Abdomen: normal bowel sounds, non tender, soft Extremities: no pedal edema Neurologic/Psychiatric: alert, oriented x 3 Skin: normal color, warm/dry (Raquel Garduno PA-C) Laboratory Results Last 24 Hours Test 11/11/16 04:45 White Blood Count 12.38 K/uL Red Blood Count 3.59 M/uL Hemoglobin 12.7 g/dL Hematocrit 36.4 % Mean Corpuscular Volume 101.4 fL Mean Corpuscular Hemoglobin 35.4 pg Mean Corpuscular Hemoglobin Concent 34.9 g/dl RDW Standard Deviation 48.0 fL RDW Coefficient of Variation 12.8 % Platelet Count 108 K/uL Mean Platelet Volume 9.8 fL Activated Partial Thromboplast Time 30.1 SECONDS Partial Thromboplastin Ratio 1.2 (Raquel Garduno PA-C) Assessment and Plan Mr. Alejandro is a 61 yo male with an unremarkable PMHx who presented for throat and chest burning and HARRIS with EKG significant for STEMI and elevated troponins STEMI S/P Catheterization with Complete Occlusion RCA: POD #1 - Assessment - continues with pleuritic CP but improved from yesterday and takes deeper breaths to aggravate -- EKG revealing heart block - Imaging and Studies -- CXR (11/09) - image and report reviewed - unremarkable -- Trops - peak of 62.8 and trending down -- Lipid panel and HbA1c - unremarkable - Echo - EF 40-45% - ASA 81 mg daily and Plavix 75 mg daily -- As pleuritic CP improving will hold off on increased ASA to cover for Re syndrome at this time - will institute PPI if ASA increased - Atorvastatin 80 mg daily - Decreased Metoprolol to 12.5 mg BID - Cardiology following - medication recommendations appreciated -- TERRY inhibitor has not been instituted at this point concern for hypotension will continue to monitor BP HTN: - Metoprolol 12.5 mg BID DVT Prophylaxis: - Ambulation Code Status: - FULL RESUSCITATION Disposition - Will monitor throughout the day possible D/C tomorrow (Raquel Garduno PA-C) PA Physician Supervision Note: I interviewed and examined the patient. Discussed with Raquel Garduno PAC and agree with findings and plan as documented in the note. Any exceptions or clarifications are listed here: None Pt doing well but has developed complete heart block that is asymptomatic and has accelerated junctional rhythm vitals show heart rate in 70's but still with heart block car sounds regular despite heart block lungs clear s/p stemi, RCA territory, complete RCA occlusion, now with post mi heart block, continue to monitor, asa/plavix, reduce B Huong, continue statin Documented By: Tom Etienne (Tom Etienne M.D.)
[2016-11-11] MEDS ORDERED: METOPROLOL TARTRATE 1 MG/ML VIAL IV PRN (17:30)
--- NOTE | 2016-11-11 17:40 | Cardiology Follow-Up ---
Subjective Subjective Date of Service: Nov 11, 2016. Pt evaluation today including: conversation w/ patient, conversation w/ family , physical exam, chart review, lab review, review of studies, conversation w/ personal consultant, review of inpatient medication list Additional Details: Feeling well this morning. No chest pain. Denies any significant shortness of breath. No presyncope. Telemetry, ECGs reviewed: complete heart block with accelerated junctional escape rhythm in 70s. Problem List Medical Problems: (1) Acute myocardial infarction Status: Acute Review of Systems Constitutional: No chills, No fever Respiratory: No cough, No dyspnea at rest, No dyspnea on exertion Cardiac: No chest pain Abdomen: No diarrhea, No nausea, No pain, No vomiting Musculoskeletal: No calf pain, No swelling Male : No dysuria Endo: No fatigue Skin: No rash Objective Vital Signs Last Vital Signs Documentation Date Time Temp Pulse Resp B/P Pulse Ox O2 Delivery O2 Flow Rate FiO2 11/11/16 11:18 36.8 78 16 118/63 99 11/11/16 07:30 Room Air 11/10/16 15:31 3 Physical Exam: General Appearance: WD/WN, no apparent distress ENT: hearing grossly normal Neck: no JVD, no carotid bruits Respiratory/Chest: lungs clear, normal breath sounds, no respiratory distress, no accessory muscle use Cardiovascular: regular rate, rhythm, no gallop, no murmur Abdomen: normal bowel sounds, non tender, soft Extremities: no pedal edema, no calf tenderness, + pertinent finding (right radial access site looks good. No hematoma. Good distal pulses. Sensation intact) Neurologic/Psychiatric: alert, oriented x 3 Skin: normal color, warm/dry Assessment and Plan 1. Late presenting Inferior STEMI/Occluded Mid RCA 2. Complete heart block with accelerated junctional escape rhythm 3. Ischemic cardiomyopathy, EF 40-45% Patient looks and feels well. No recurrent chest pain. Pleuritic symptoms resolved. Hopeful that current complete AV block will resolve with time - often AV block post RCA infarct vagally mediated and resolves without intervention For now would continue to monitor on telemetry and hold Beta-brigitte Discussed with EP, Dr. Allan. If AV dissociation persists would consider PPM on monday. Otherwise continue ASA/Plavix, and high dose statin. Start TERRY as BP allows. Cardiology to continue to follow. Medications: Current Inpatient Medications Medications (Trade) Dose Ordered Sig/Tyrone Route Start Time Stop Time Status Last Admin Dose Admin Acetaminophen (Tylenol Tab) 650 mg Q4H PRN PO 11/09/16 15:30 12/09/16 15:29 11/10/16 20:00 650 MG Ondansetron HCl (Zofran Inj) 4 mg Q6H PRN IV 11/09/16 15:30 12/09/16 15:29 Nitroglycerin (Nitrostat Tab) 0.4 mg UD PRN SL 11/09/16 15:30 12/09/16 15:29 Morphine Sulfate (MoRPHine SULFATE INJ) 2 mg Q30M PRN IV 11/09/16 15:30 11/23/16 15:29 Aspirin (Ecotrin Tab) 81 mg QAM PO 11/10/16 09:00 12/10/16 08:59 11/11/16 08:29 81 MG Atorvastatin Calcium (Lipitor Tab) 80 mg QPM PO 11/09/16 21:00 12/09/16 20:59 11/10/16 20:01 80 MG Clopidogrel Bisulfate (plAVix TAB) 75 mg QAM PO 11/11/16 09:00 12/11/16 08:59 11/11/16 09:34 75 MG Metoprolol Tartrate (Lopressor Tab) 12.5 mg BID PO 11/11/16 21:00 12/11/16 20:59 Lab Results: 11/11/16 04:45 Test 11/11/16 04:45 Red Blood Count 3.59 M/uL (4.7-6.1) Mean Corpuscular Volume 101.4 fL (80-100) Mean Corpuscular Hemoglobin 35.4 pg (25-34) Mean Corpuscular Hemoglobin Concent 34.9 g/dl (32-36) RDW Standard Deviation 48.0 fL (36.4-46.3) RDW Coefficient of Variation 12.8 % (11.5-14.5) Mean Platelet Volume 9.8 fL (7.4-10.4) Activated Partial Thromboplast Time 30.1 SECONDS (21.0-31.0) Partial Thromboplastin Ratio 1.2
[2016-11-11] MEDS: ATORVASTATIN 40 MG TAB PO SCH (20:25)
[2016-11-11] MEDS ORDERED: METOPROLOL TARTRATE 25 MG TAB PO SCH (21:00)
[2016-11-11] MEDS ORDERED: ATROPINE SULFATE 0.1 MG/ML 5ML SYR ONE (23:44)
[2016-11-11] MEDS ORDERED: DOPamine 400MG / 250ML D5W ONE (23:45)
[2016-11-11] MEDS: DOPamine 400MG / D5W 400 MG IV PRN (23:58)
[2016-11-12] VITALS (23 sets, daily range): BP systolic 108–152; BP diastolic 55–81; PULSE 54–76; TEMP 36.7–37.2; O2SAT 90–98
[2016-11-12] MEDS: NSS + 20MEQ KCL 1000ML 1,000 ML IV SCH ×3 (00:09→20:46)
[2016-11-12] MEDS: DOPamine 400MG / D5W 400 MG IV PRN ×2 (00:23→12:22)
[2016-11-12 06:12] LABS: PARTIAL THROMBOPLASTIN RATIO 1.2
[2016-11-12] MEDS: ASPIRIN 81 MG ECTAB PO SCH (09:06)
[2016-11-12] MEDS: CLOPIDOGREL BISULFATE 75 MG TAB PO SCH (09:06)
--- NOTE | 2016-11-12 10:14 | CARDIOLOGY PROGRESS NOTE ---
DATE: 11/12/2016 DATE: 11/12/2016. HISTORY OF PRESENT ILLNESS: The patient was seen by me this morning in his intensive care unit room. He was transferred from the telemetry unit last evening because of 4 episodes of complete heart block without junctional escape. This resulted in asystole. The duration of the episodes as measured by me were 7.3 seconds, 9.4 seconds, 6.2 seconds and 10 seconds. These were approximate measurements. With the episodes the patient had brief loss of consciousness. He had no associated dyspnea or chest pain with the episodes. When he quickly regained consciousness he had no complaints. He was started on low dose intravenous dopamine at 3 mcg per kilogram per minute. He was transferred to the intensive care unit. Since being in the intensive care unit, he has had no further episodes of asystole. Review of the monitor by me shows sinus rhythm with complete heart block. However, when I was in the patient's room he had a several second episode of what appeared to be high degree second degree block. There appeared to be some atrioventricular conduction transiently present. The rhythm then reverted back to complete heart block. The patient is feeling well overall this morning. No chest pains of any sort. No orthopnea or PND. No fevers or chills. No further lightheadedness or syncope. No abdominal pain or nausea. No leg pain. No pain at his right radial catheterization site. No cerebrovascular or peripheral vascular complaints. He does complain of difficulty in sleeping. CURRENT MEDICATIONS: Normal saline 100 mL per hour with potassium supplementation added, intravenous dopamine 3 mcg per kilogram per minute, clopidogrel 75 mg daily, aspirin 81 mg daily, atorvastatin 80 mg daily, p.r.n. acetaminophen, p.r.n. Zofran, p.r.n. sublingual nitroglycerin, p.r.n. intravenous morphine. ALLERGIES AND ADVERSE DRUG REACTIONS: None. PHYSICAL EXAMINATION: VITAL SIGNS: This morning revealed pulse 60, blood pressure 120/72, pulse oximetry room air 96%. GENERAL APPEARANCE: Shows him to be in no distress. HEAD: Normal. NECK: No jugular venous distention. LUNGS: Normal respiratory effort. Clear. No rales or wheezes. HEART: Regular rate and rhythm. S1, S2 normal. No S3 or S4. No murmur or rub. ABDOMEN: Soft. Nontender. No palpable masses or organomegaly. Normal bowel sounds. No bruits. EXTREMITIES: Right radial catheterization site without bleeding or hematoma. No evidence of arterial insufficiency in the right hand. Right radial pulse strongly palpable. No pretibial edema. No calf tenderness. NEUROLOGIC: Alert and oriented x3. Motor grossly intact. PSYCHIATRIC: Affect is normal. LABORATORY DATA: No new labs performed today other than PTT 31.3. Apparently the patient had standing orders for PTT in the a.m. while on heparin. ASSESSMENT: 1. Status post inferior ND with late presentation to [facility]. 2. Cardiac catheterization on 11/10/2016 via right radial artery showed total occlusion of the mid RCA. Because it was felt that the occlusion was greater than 24 hours and the patient was stable no intervention was performed. 3. No post-infarct angina. 4. The patient did have pleuritic chest discomfort following admission. This has since resolved. Most likely secondary to pericarditis secondary to myocardial infarction. 5. No ventricular arrhythmias. 6. No signs or symptoms of congestive heart failure. Mild to moderate LV systolic dysfunction on echo with LV ejection fraction 45-45%. Inferior and posterior wall motion abnormality. 7. Complete heart block. Narrow complex escape rhythm. 8. Four episodes of asystole last evening. These resulted in brief loss of consciousness. Since then, he has had no further evidence of any significant pauses. 9. While I was observing the monitor in the patient's room, he transiently had conversion to second degree AV block. There appeared to be some conduction of P-waves transiently. The rhythm then reverted back to complete heart block. 10. The patient is hemodynamically stable. 11. No vascular complications at right radial catheterization site. PLAN AND RECOMMENDATIONS: 1. The patient was not hooked up to the temporary pacemaker at the time of my exam. I hooked him up to the temporary pacemaker. The rate is set at 40, mA at 70. The generator was actually turned off. If it is needed all that needs to be done is for it to be turned to the pacer mode. Would then adjust mA appropriately to as low as possible to assure adequate capture. 2. The patient can be out of bed to a chair with supervision. 3. If he requires temporary transcutaneous pacing will then need to consider placing a temporary transvenous pacemaker. 4. Continue to monitor for resolution to complete heart block. 5. Continue to keep patient in the ICU. 6. We will hold off on TERRY inhibitor therapy at this time. Once his rhythm has normalized can start afterload reduction therapy with an TERRY inhibitor or angiotensin receptor brigitte. Obviously, beta brigitte therapy is contraindicated. 7. As the patient is currently stable will continue intravenous low dose dopamine today. The above assessment and plan were discussed with the nursing staff, Dr. Robles, and Dr. Etienne. Assessment and plan were also discussed with the patient and his family. TA
[2016-11-12] MEDS: ACETAMINOPHEN 325 MG TAB PO PRN (12:28)
--- NOTE | 2016-11-12 12:42 | Progress Note ---
Subjective Date of Service: Nov 12, 2016. Subjective pt transfered to ICU for symptomatic bradycardia after Right sided STEMI with total RCA occlusion this am feels 'fine' and has no symptoms Problem List Medical Problems: (1) Acute myocardial infarction Status: Acute Review of Systems Constitutional: No chills, No fever Respiratory: No cough, No shortness of breath, No sputum Cardiac: No chest pain, No orthopnea Abdomen: No diarrhea, No nausea, No pain, No vomiting Male : No dysuria, No urinary frequency Psychiatric: No anhedonism, No depression symptoms Objective Vital Signs Date Time Temp Pulse Resp B/P Pulse Ox O2 Delivery O2 Flow Rate FiO2 11/12/16 06:58 60 17 120/72 96 Room Air 11/12/16 04:28 91 Room Air 11/12/16 01:58 68 9 130/67 90 Room Air 11/12/16 01:40 72 12 129/68 93 Room Air 11/12/16 00:58 72 14 134/81 90 Room Air 11/12/16 00:40 36.8 76 18 94 3.0 11/12/16 00:39 75 13 144/72 93 Room Air 11/12/16 00:00 Room Air 11/11/16 23:52 76 127/79 94 Room Air 11/11/16 23:49 75 126/73 11/11/16 23:49 73 125/75 94 Room Air 11/11/16 23:35 36.8 69 18 103/67 97 Room Air 11/11/16 20:00 Room Air 11/11/16 19:52 36.4 75 18 127/83 100 Room Air 11/11/16 16:05 Room Air 11/11/16 15:30 36.5 76 20 124/78 99 Room Air 11/11/16 12:05 Room Air 11/11/16 11:18 36.8 78 16 118/63 99 Physical Exam General Appearance: WD/WN, no apparent distress Neck: supple, no JVD Respiratory/Chest: chest non-tender, lungs clear, normal breath sounds Cardiovascular: regular rate, rhythm, no murmur Abdomen: normal bowel sounds, non tender, soft Extremities: no pedal edema, no calf tenderness Neurologic/Psychiatric: alert, oriented x 3 Laboratory Results Last 24 Hours Test 11/12/16 05:04 Activated Partial Thromboplast Time 31.3 SECONDS Partial Thromboplastin Ratio 1.2 Assessment and Plan Mr. Alejandro is a 61 yo male with an unremarkable PMHx who presented for throat and chest burning and HARRIS with EKG significant for STEMI and elevated troponins , overnight 11/11- developed more significant heart block with symptoms, moved to ICU STEMI S/P Catheterization with Complete Occlusion RCA: -- EKG revealing 3rd degree heart block- Echo - EF 40-45% - ASA 81 mg daily and Plavix 75 mg daily, Atorvastatin 80 mg daily, stopped b brigitte - Cardiology following -now consideration for ppm will be undertaket DVT Prophylaxis: - Ambulation Code Status: - FULL RESUSCITATION
[2016-11-12] MEDS: ATORVASTATIN 40 MG TAB PO SCH (20:47)
[2016-11-13] VITALS (25 sets, daily range): BP systolic 113–151; BP diastolic 58–92; PULSE 51–79; TEMP 36.4–36.8; O2SAT 92–100
--- NOTE | 2016-11-13 01:13 | CRITICAL CARE CONSULTATION ---
DATE OF CONSULTATION: 11/12/2016 CHIEF COMPLAINT: Chest pain and shortness of breath. HISTORY OF PRESENT ILLNESS: Mr. Alejandro is a 61-year-old gentleman, with a history of hypertension who does not see doctors very often. On November 08, he was hunting and had to drag a deer at which time he started to have chest discomfort. He described it as a heartburn-type sensation without radiation and unrelieved by rest. It was in the middle of his chest and he rates it a 3/10. He believes it lasted 6-8 hours and he admits he knew "something was wrong." He presented to a primary care office the following day, at which time an EKG was done which showed inferior ST segment elevations and Q-waves. He was then referred to the Emergency Department where he was given nitro paste and he had a chest x-ray done. He was also eventually started on aspirin, statin, heparin infusion and a beta brigitte in the ED as well. The following day, he underwent cardiac catheterization which showed a completely occluded RCA and the decision was made to manage him medically. He was loaded with Plavix and was also given an TERRY inhibitor and Proton Pump Inhibitor. He also complained of some pleuritic pain which was felt to possibly be secondary to pericarditis. Late last night, on the , he was noted to have significant pauses and further review was found to be in complete heart block with a junctional escape rhythm. He was transferred to the intensive care unit just before midnight and was started on dopamine infusion. Transcutaneous pacing pads were also placed. Since his admission, he is in complete heart block and his ventricular rate will dip down into the high 30s and 40s. He has not had any syncope or chest pain with it nor has he required any additional medications. His dopamine was weaned off earlier today. He does sometimes feel a little bit like he is going to pass out, but that does not last long. He has not had any syncope. PAST MEDICAL HISTORY: Hypertension. PAST SURGICAL HISTORY: None. ALLERGIES: No known drug allergies. OUTPATIENT MEDICATIONS: None. SOCIAL HISTORY: He works doing manual labor, laying bricks and working with concrete. He has a [id number] history of smoking years ago. He does not drink alcohol on a regular basis. He is . He chews tobacco. FAMILY HISTORY: Negative for coronary artery disease. REVIEW OF SYSTEMS: He denies any headache, diaphoresis, fevers, chills, nausea, vomiting, abdominal pain, diarrhea or constipation. His appetite is good. His weight is stable. He denies lower extremity edema, numbness or tingling, syncope, rashes, bleeding. Additional review of systems is negative or noncontributory in a 12-point system. PHYSICAL EXAMINATION: VITAL SIGNS: Temperature 36.8, heart rate 56, respiratory rate 12, blood pressure 133/73 and oxygen saturation 92% on room air. HEENT: Pupils are equally round and reactive to light. Oral mucosa is moist. Posterior pharynx is clear. NECK: Veins are flat. I do not hear any bruits. LUNGS: Clear to auscultation bilaterally. No rales, rhonchi or wheezes. HEART: Irregular. No murmurs noted. ABDOMEN: Soft, nondistended and nontender. EXTREMITIES: Warm. No edema. Radial and dorsalis pedis pulses are 1+ bilaterally. NEUROLOGIC: He is grossly intact. LABORATORY DATA: There are none from today other than a blood sugar of 107. Troponin yesterday peaked at 62.8, but that was his first troponin. EKGs have been reviewed. Portable chest x-ray in the Emergency Department was reviewed and shows mild cardiomegaly. No acute infiltrate. IMPRESSION: 1. Acute inferior wall ST-segment elevation myocardial infarction which likely occurred at least the day prior to his admission to the hospital. 2. Occluded right coronary artery. 3. Possible pericarditis. 4. Complete heart block with accelerated junctional rhythm. 5. Decreasing platelets. 6. History of cigarette use and now he is chewing tobacco. 7. History of hypertension. PLAN: 1. Continue to monitor in the ICU with transcutaneous pacemaker in place and attached to the pacing equipment. 2. The beta brigitte has already been discontinued. Continue aspirin, Lipitor, Plavix and Lopressor. 3. SCDs for DVT prophylaxis. Consider subcutaneous heparin. I would like to see what his platelets are doing tomorrow. 4. Continue aspirin, Lipitor, Plavix and IV Lopressor. 5. NSAID for any pleuritic pain. Presently, he is comfortable. 6. Hopefully, he will not require a permanent pacemaker. TA
[2016-11-13 04:45] LABS: MEAN CELL VOLUME 101.2 fL (80-100); MEAN PLATELET VOLUME 9.5 fL (7.4-10.4); PLATELET COUNT 131 K/uL (130-400); RED BLOOD COUNT 3.46 M/uL (4.7-6.1); WHITE BLOOD COUNT 7.68 K/uL (4.8-10.8)
[2016-11-13 05:06] LABS: MEAN CORPUSCULAR HGB CONC 34.6 g/dl (32-36)
[2016-11-13 05:09] LABS: BUN/CREATININE RATIO 19.6 (10-20); CALCIUM 8.4 mg/dl (8.5-10.1); MAGNESIUM 2.4 mg/dl (1.8-2.4); POTASSIUM 4.3 mmol/L (3.5-5.1)
[2016-11-13] MEDS: NSS + 20MEQ KCL 1000ML 1,000 ML IV SCH (06:01)
--- NOTE | 2016-11-13 07:18 | Progress Note ---
Subjective Date of Service: Nov 13, 2016. Subjective pt remains asymptomatic, remains in complete heart block Problem List Medical Problems: (1) Acute myocardial infarction Status: Acute Review of Systems Constitutional: No chills, No fever Respiratory: No cough, No shortness of breath Cardiac: No chest pain, No edema Abdomen: No diarrhea, No nausea, No pain, No vomiting Musculoskeletal: No joint pain, No muscle pain Objective Vital Signs Date Time Temp Pulse Resp B/P Pulse Ox O2 Delivery O2 Flow Rate FiO2 11/13/16 05:59 36.6 51 14 123/69 95 Room Air 11/13/16 04:58 53 17 139/75 94 Room Air 11/13/16 04:14 95 Room Air 11/13/16 03:58 53 7 141/73 93 Room Air 11/13/16 02:58 55 18 116/71 93 Room Air 11/13/16 01:58 54 15 120/66 93 Room Air 11/13/16 00:58 56 22 121/69 92 Room Air 11/13/16 00:02 95 Room Air 11/12/16 23:58 37.0 54 15 110/67 95 Room Air 11/12/16 22:58 54 14 133/74 92 Room Air 11/12/16 21:58 55 16 108/55 93 Room Air 11/12/16 20:58 55 3 141/72 93 Room Air 11/12/16 20:09 95 Room Air 11/12/16 19:59 37.2 54 7 117/69 96 Room Air 11/12/16 17:58 56 14 123/77 96 Room Air 11/12/16 17:00 56 12 111/75 96 Room Air 11/12/16 16:00 Room Air 11/12/16 15:58 36.8 56 12 133/73 92 Room Air 11/12/16 14:59 59 17 148/74 97 Room Air 11/12/16 13:58 58 14 126/72 94 Room Air 11/12/16 12:58 59 16 134/73 93 Room Air 11/12/16 12:00 Room Air 11/12/16 11:59 36.8 58 12 126/71 98 Room Air 11/12/16 11:00 58 23 152/74 93 Room Air 11/12/16 09:59 59 20 134/67 96 Room Air 11/12/16 08:00 Room Air 11/12/16 07:58 36.7 61 14 139/73 95 Room Air Physical Exam General Appearance: WD/WN, no apparent distress Eyes: PERRL, EOMI Neck: supple, no JVD Respiratory/Chest: chest non-tender, lungs clear, normal breath sounds Cardiovascular: no murmur, + bradycardia Abdomen: normal bowel sounds, non tender, soft Extremities: no pedal edema, no calf tenderness Laboratory Results Last 24 Hours Test 11/12/16 16:04 11/13/16 04:39 Bedside Glucose 107 mg/dl White Blood Count 7.68 K/uL Red Blood Count 3.46 M/uL Hemoglobin 12.1 g/dL Hematocrit 35.0 % Mean Corpuscular Volume 101.2 fL Mean Corpuscular Hemoglobin 35.0 pg Mean Corpuscular Hemoglobin Concent 34.6 g/dl RDW Standard Deviation 46.3 fL RDW Coefficient of Variation 12.5 % Platelet Count 131 K/uL Mean Platelet Volume 9.5 fL Sodium Level 141 mmol/L Potassium Level 4.3 mmol/L Chloride Level 107 mmol/L Carbon Dioxide Level 24 mmol/L Anion Gap 10.0 mmol/L Blood Urea Nitrogen 20 mg/dl Creatinine 1.00 mg/dl Est Creatinine Clear Calc Drug Dose 95.3 ml/min Estimated GFR () 92.4 Estimated GFR (Non- 79.7 BUN/Creatinine Ratio 19.6 Random Glucose 111 mg/dl Calcium Level 8.4 mg/dl Magnesium Level 2.4 mg/dl Assessment and Plan Mr. Alejandro is a 61 yo male with an unremarkable PMHx who presented for throat and chest burning and HARRIS with EKG significant for STEMI and elevated troponins , overnight 11/11- developed more significant heart block with symptoms, moved to ICU STEMI S/P Catheterization with Complete Occlusion RCA: remains in asymptomatic 3rd degree heart block -- EKG revealing 3rd degree heart block- Echo - EF 40-45% - ASA 81 mg daily and Plavix 75 mg daily, Atorvastatin 80 mg daily, stopped b brigitte - Cardiology following -now consideration for ppm will be undertaken DVT Prophylaxis: - Ambulation Code Status: - FULL RESUSCITATION
[2016-11-13] MEDS: CLOPIDOGREL BISULFATE 75 MG TAB PO SCH (08:59)
[2016-11-13] MEDS: ASPIRIN 81 MG ECTAB PO SCH (08:59)
[2016-11-13] MEDS ORDERED: MAGNESIUM HYDROXIDE SUSP 30 ML UDC PO ONE (09:15)
--- NOTE | 2016-11-13 10:11 | CARDIOLOGY PROGRESS NOTE ---
DATE: 11/13/2016 SUBJECTIVE: The patient was seen by me this morning in the intensive care unit. He slept well overnight. No chest pain or other anginal type pains. No orthopnea or PND. No palpitations, lightheadedness, or syncope. He does complain of constipation. No nausea. No vomiting. No pulmonary or urinary complaints. No cerebrovascular or peripheral vascular complaints. No leg pain or swelling. MEDICATIONS: This morning were enoxaparin 40 mg subQ daily a.m., intravenous dopamine, clopidogrel 75 mg daily, aspirin 81 mg daily, atorvastatin 80 mg q.p.m., p.r.n. Zofran, p.r.n. sublingual nitroglycerin, and p.r.n. morphine. ALLERGIES: No known drug allergies. Monitor history over the past 24 hours shows no asystole. The patient currently appears to be in sinus rhythm with 2:1 AV block. There are also episodes of grouped beating, which would be consistent with Wenckebach. PHYSICAL EXAMINATION: VITAL SIGNS: This morning oral temperature 36.6, pulse 51, blood pressure 123/69, and pulse oximetry on room air 95%. NECK: No jugular venous distention. LUNGS: Clear. No rales or wheezes. HEART: Decreased rate. Regular rhythm at the time of my exam. S1 and S2 normal. No S3 or S4. No murmur or rub. ABDOMEN: Soft. Nontender. No palpable masses or organomegaly. No bruits. EXTREMITIES: No pretibial edema. NEUROLOGIC: Alert and oriented x3. Motor grossly intact. PSYCHIATRIC: Affect is normal. LABORATORY DATA: Today with WBC 7.68, hemoglobin 12.1, hematocrit 35.0, and platelet count 131. Metabolic profile -- sodium 141, potassium 4.2, chloride 107, carbon dioxide 24, BUN 20, creatinine 1.0, and magnesium 2.4. ASSESSMENT: 1. Status post inferior myocardial infarction secondary to total occlusion of mid RCA. 2. Late presentation to [facility]. Because the occlusion was documented greater than 24 hours from his infarct and the patient was stable, no intervention was performed to the RCA. 3. [id number] left ventricular systolic dysfunction. No signs or symptoms of congestive heart failure. 4. Complete heart block. Episodes of asystole on the evening of November 11. Since admission to the intensive care unit, no further episodes of asystole. Yesterday, he was in complete block. Today, he appears to be in second degree atrioventricular block. There are many episodes of grouped beating. This would be consistent with Wenckebach. 5. No cardiac complaints. 6. Hemodynamically stable. PLAN: 1. Discontinue the intravenous dopamine. 2. Out of bed to chair and commode with supervision. Would keep the patient attached to the external pacer. The patient states he wants to have the bowel moment. With a bowel movement, there could be increased vagal tone. This could worsen his AV node conduction. 3. Electrocardiogram today. Daily a.m. electrocardiogram over the next 2 days. 4. Continue aspirin, clopidogrel, and atorvastatin.
[2016-11-13] MEDS: ENOXAPARIN 40 MG/0.4 ML SYR SQ SCH (10:32)
[2016-11-13] MEDS ORDERED: SENNA 8.6 MG TAB PO ONE (16:30)
--- NOTE | 2016-11-13 17:38 | CRITICAL CARE PROGRESS NOTE ---
DATE: 11/13/2016 HISTORY OF PRESENT ILLNESS: This is a 61-year-old gentleman who presented to the hospital on November 09 after experiencing chest pain a day before. In the Emergency Department, he was found to have an acute inferoposterior ST segment elevation myocardial infarction. He was placed on a heparin infusion, aspirin, high-dose statin and beta brigitte. The cardiology service was consulted and he went to the cardiac catheterization lab the following day, since he was more than 24 hours out from his myocardial infarction. In the cardiac cath tech, he had a total occlusion of the RCA and normal cardiac filling pressures. He was loaded with Plavix as well. He was transferred back to the telemetry unit and did well; however, late on November 12 he was transferred to the intensive care unit after having complete heart block. He has had the transcutaneous pacemaker in place since transferred to the intensive care unit, but he has not required pacing. His heart rate dips down into the 40s and the cardiology service believes that he may resolve this based on where his lesion and myocardial infarction are located. There were no acute events overnight, but he does complain of constipation. He denies chest pain, shortness of breath, nausea and vomiting. He is eating well. He had been on dopamine 6 mcg/kg per minute this morning, which has been weaned off. PHYSICAL EXAMINATION: VITAL SIGNS: Maximum temperature 37, heart rate 40s to 50s, respiratory rate 7-22, blood pressure 120-140 over 60s-70s, oxygen saturation 95% on room air. A 24-hour fluid balance positive 1.5 liters. GENERAL: He is awake and alert and sitting in a chair. LUNGS: Clear to auscultation bilaterally. No rales, rhonchi or wheezes. HEART: Regular rate and rhythm, no murmurs. ABDOMEN: Limited exam due to his seated position, soft, nondistended, nontender with hypoactive bowel sounds. EXTREMITIES: Warm. No edema. The right wrist/cardiac catheterization site shows no hematoma or bleeding. LABORATORY DATA: White blood cell count 7.68, hemoglobin 12.1, hematocrit 35, platelets 131. Sodium 141, potassium 4.3, chloride 107, CO2 24, BUN 20, creatinine 1, blood sugar 111, calcium 8.4, magnesium 2.4. MEDICATIONS: Acetaminophen, aspirin, Lipitor, Plavix, Lovenox, Lopressor, nitroglycerin, Zofran. EKG from this morning shows sinus rhythm with second-degree AV block and inferior ST segment elevations. T-waves inferiorly are now upright. Echocardiogram on November 10 shows mildly reduced overall left ventricular systolic function, basal inferior akinesis of the left ventricle, basal septal and posterior hypokinesis, mild concentric left ventricular hypertrophy, left ventricular diastolic dysfunction, moderate right atrial dilatation, mild right ventricular dilatation with mild right ventricular systolic dysfunction, moderate mitral regurgitation, trace pulmonic regurgitation, trace tricuspid regurgitation, elevated central venous pressure, aortic valve sclerosis mild without significant aortic valvular stenosis. IMPRESSION: 1. Status post inferoposterior ST segment elevation myocardial infarction with late presentation to the hospital. Troponins peaked at 62.8, which was the first value obtained. He is on Plavix but obviously not a beta brigitte secondary to his bradycardia. He is on aspirin and Lipitor. 2. 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 3. Complete heart block now, Mobitz type 1 most of the time. 4. Constipation. 5. Mildly reduced left ventricular systolic function, diastolic dysfunction and mild right ventricular dilatation with mild right ventricular systolic dysfunction. 6. Decreasing platelets, improved today. 7. History of tobacco use with cigarettes, but now chewing tobacco. 8. History of hypertension. PLAN: 1. Continue to keep the transcutaneous pace making pads on and connected to him. He seems to be improving overall. 2. Continue aspirin, Lipitor and Plavix. Consider adding TERRY inhibitor. 3. Continue subcutaneous heparin for DVT prophylaxis. 4. Discontinue IV fluids. 5. I have added senna and Colace to his medications. 6. Hopefully he will avoid permanent pacemaker placement. He seems to be improving.
[2016-11-13] MEDS: DOCUSATE SODIUM 100 MG CAP PO SCH (20:53)
[2016-11-13] MEDS: ATORVASTATIN 40 MG TAB PO SCH (20:53)
[2016-11-14] VITALS (12 sets, daily range): BP systolic 110–157; BP diastolic 63–91; PULSE 68–95; TEMP 36.5–36.9; O2SAT 94–99
[2016-11-14] MEDS: ASPIRIN 81 MG ECTAB PO SCH (08:03)
[2016-11-14] MEDS: CLOPIDOGREL BISULFATE 75 MG TAB PO SCH (08:04)
[2016-11-14] MEDS: ENOXAPARIN 40 MG/0.4 ML SYR SQ SCH (08:11)
[2016-11-14] MEDS: SENNA 8.6 MG TAB PO SCH (08:19)
[2016-11-14] MEDS: DOCUSATE SODIUM 100 MG CAP PO SCH ×2 (08:19→21:00)
--- NOTE | 2016-11-14 11:41 | Progress Note ---
Subjective Date of Service: Nov 14, 2016. (Raquel Garduno PA-C) Subjective Pt evaluation today including: conversation w/ patient, conversation w/ family , physical exam, chart review, lab review, review of studies, review of inpatient medication list Patient seen and evaluated. Converted to NSR overnight. Reports no chest pain and pleuritic chest pain from previous exams have subsided. Had bowel movement yesterday. Verbalizes no further complaints at this time. Discussed plan and answered questions from patient and daughter at bedside. (Raquel Garduno PA-C) Problem List Medical Problems: (1) Acute myocardial infarction Status: Acute (Raquel Garduno PA-C) Review of Systems Constitutional: No chills, No fever Respiratory: No cough, No shortness of breath Cardiac: No chest pain Abdomen: No nausea, No pain, No vomiting Male : No dysuria Skin: No rash (Raquel Garduno PA-C) Medications Current Inpatient Medications Medications (Trade) Dose Ordered Sig/Tyrone Route Start Time Stop Time Status Last Admin Dose Admin Acetaminophen (Tylenol Tab) 650 mg Q4H PRN PO 11/09/16 15:30 12/09/16 15:29 11/12/16 12:28 650 MG Ondansetron HCl (Zofran Inj) 4 mg Q6H PRN IV 11/09/16 15:30 12/09/16 15:29 Nitroglycerin (Nitrostat Tab) 0.4 mg UD PRN SL 11/09/16 15:30 12/09/16 15:29 Morphine Sulfate (MoRPHine SULFATE INJ) 2 mg Q30M PRN IV 11/09/16 15:30 11/23/16 15:29 Aspirin (Ecotrin Tab) 81 mg QAM PO 11/10/16 09:00 12/10/16 08:59 11/14/16 08:03 81 MG Atorvastatin Calcium (Lipitor Tab) 80 mg QPM PO 11/09/16 21:00 12/09/16 20:59 11/13/16 20:53 80 MG Clopidogrel Bisulfate (plAVix TAB) 75 mg QAM PO 11/11/16 09:00 12/11/16 08:59 11/14/16 08:04 75 MG Enoxaparin Sodium (Lovenox Inj) 40 mg QAM SQ 11/13/16 09:00 12/13/16 08:59 11/14/16 08:11 40 MG Docusate Sodium (coLACE CAP) 100 mg BID PO 11/13/16 21:00 12/13/16 20:59 11/13/16 20:53 100 MG Senna (Senokot Tab) 8.6 mg QAM PO 11/14/16 09:00 12/14/16 08:59 (Raquel Garduno, DIANAC) Objective Vital Signs Date Time Temp Pulse Resp B/P Pulse Ox O2 Delivery O2 Flow Rate FiO2 11/14/16 08:00 36.7 90 20 125/63 96 Room Air 11/14/16 08:00 96 Room Air 11/14/16 05:58 73 19 124/76 97 Room Air 11/14/16 04:58 79 17 123/71 97 Room Air 11/14/16 04:50 95 Room Air 11/14/16 04:00 36.8 95 26 130/ Room Air 11/14/16 02:58 88 14 130/76 97 Room Air 11/14/16 01:58 68 16 110/69 95 Room Air 11/14/16 00:58 68 17 112/67 94 Room Air 11/14/16 00:54 95 Room Air 11/13/16 23:58 73 22 122/76 97 Room Air 11/13/16 22:58 77 18 130/79 97 Room Air 11/13/16 21:58 36.8 77 15 129/84 100 Room Air 11/13/16 21:30 95 Room Air 11/13/16 20:58 79 21 151/92 99 Room Air 11/13/16 19:58 36.8 79 16 126/77 100 Room Air 11/13/16 19:05 79 12 128/77 95 Room Air 11/13/16 19:02 67 18 128/77 Room Air 11/13/16 18:00 58 20 114/75 97 Room Air 11/13/16 16:00 Room Air 11/13/16 16:00 36.8 62 22 126/72 98 Room Air 11/13/16 13:59 56 12 113/72 95 Room Air 11/13/16 12:58 53 16 117/87 11/13/16 12:00 Room Air 1/15/17 11:59 36.4 63 14 118/75 94 Room Air (Raquel Garduno, DIANAC) Physical Exam General Appearance: WD/WN, no apparent distress Eyes: sclerae normal ENT: hearing grossly normal Neck: supple, no JVD, trachea midline Respiratory/Chest: lungs clear, normal breath sounds, no respiratory distress, no accessory muscle use Cardiovascular: regular rate, rhythm, no gallop, no murmur Abdomen: normal bowel sounds, non tender, soft Extremities: no pedal edema, no calf tenderness Neurologic/Psychiatric: alert, oriented x 3 Skin: normal color (Raquel Garduno, DIANAC) Assessment and Plan Mr. Alejandro is a 61 yo male with an unremarkable PMHx who presented for throat and chest burning and HARRIS with EKG significant for STEMI and elevated troponins , overnight 11/11- developed more significant heart block with symptoms, moved to ICU, has converted to NSR and suitable for transfer to tele STEMI S/P Catheterization with Complete Occlusion RCA: Converted to NSR - Assessment - Initially patient with complete heart block that transitioned to 2nd degree Wenckebach and is now NSR -- Echo - EF 40-45% - ASA 81 mg daily and Plavix 75 mg daily - Atorvastatin 80 mg daily - BB has been stopped - - Cardiology following - appreciate recommendations - agree with current medical management DVT Prophylaxis: - Lovenox 40 mg SC daily Code Status: - FULL RESUSCITATION Disposition - D/C home in 1-2 days (Raquel Garduno, LUKE-C) Attending Attestation: Pt seen/examined, chart reviewed, and care plan d/w LUKE Garduno. I agree with the parada components of her documentation. AV block stopped last pm, converted to NSR and he has remained so since then. Denies c/o cp, sob, dyspnea w/ exertion, nausea, emesis. VSS, afebrile gen - nad heart - RRR, s1, s2, no murmur lungs - CTA b/l abd - soft, NT, BS+ ext - no edema; right wrist with ecchymoses but no hematoma A/P: STEMI 2nd to RCA occlusion acute systolic CHF 2nd to STEMI - compensated 2nd/3rd degree AV block 2nd to STEMI - resolved tx to tele unit continue statin, asa, etc holding BB due to recent AVB anticipate d/c home next 24 hours if telemetry is stable Kathi ROSE MD (Darrell Rose MD)
--- NOTE | 2016-11-14 12:17 | Cardiology Follow-Up ---
Subjective Subjective Date of Service: Nov 14, 2016. Pt evaluation today including: conversation w/ patient, conversation w/ family , physical exam, chart review, lab review, review of studies, review of inpatient medication list Additional Details: Feeling well. No chest pain or shortness of breath. No other new complaints. Overnight converted to sinus rhythm on telemetry. Sinus rhythm at time of visit. ECG this AM - sinus rhythm with conducting PACs Problem List Medical Problems: (1) Acute myocardial infarction Status: Acute Review of Systems Constitutional: No chills, No fever Respiratory: No cough, No shortness of breath Cardiac: No chest pain Abdomen: No nausea, No pain, No vomiting Musculoskeletal: No joint pain, No muscle pain Male : No dysuria Psychiatric: No anhedonism, No depression symptoms Heme: No abnormal bleeding/bruising Endo: No fatigue Skin: No rash Objective Vital Signs Last Vital Signs Documentation Date Time Temp Pulse Resp B/P Pulse Ox O2 Delivery O2 Flow Rate FiO2 11/14/16 08:00 36.7 90 20 125/63 96 Room Air 11/12/16 00:40 3.0 Physical Exam: General Appearance: WD/WN, no apparent distress ENT: hearing grossly normal Neck: supple, no JVD, trachea midline Respiratory/Chest: lungs clear, normal breath sounds, no respiratory distress, no accessory muscle use Cardiovascular: regular rate, rhythm, no gallop, no murmur Abdomen: normal bowel sounds, non tender, soft Extremities: no pedal edema, no calf tenderness, + pertinent finding (right radial artery access site no hematoma. good distal pulse.) Neurologic/Psychiatric: alert, oriented x 3 Skin: normal color Assessment and Plan 1. Late presenting Inferior STEMI/Occluded Mid RCA 2. Complete heart block with accelerated junctional escape rhythm 3. Ischemic cardiomyopathy, EF 40-45% AV block resolving now with sinus rhythm and conducting PACs. Remains chest pain free and hemodynamically stable. Have discussed case with EP, Dr. Daly, we remain hopeful that can be managed going forward without pacemaker placement Ok to transfer out of ICU today to telemetry. If tele remains unremarkable plan for likely discharge tomorrow on 48 hr holter monitor with possible extended ambulatory monitoring. Continue ASA/plavix Continue high dose statin beta-brigitte/TERRY on hold. Appreciate Hospital medicine care. Cardiology to continue to follow. Medications: Current Inpatient Medications Medications (Trade) Dose Ordered Sig/Tyrone Route Start Time Stop Time Status Last Admin Dose Admin Acetaminophen (Tylenol Tab) 650 mg Q4H PRN PO 11/09/16 15:30 12/09/16 15:29 11/12/16 12:28 650 MG Ondansetron HCl (Zofran Inj) 4 mg Q6H PRN IV 11/09/16 15:30 12/09/16 15:29 Nitroglycerin (Nitrostat Tab) 0.4 mg UD PRN SL 11/09/16 15:30 12/09/16 15:29 Morphine Sulfate (MoRPHine SULFATE INJ) 2 mg Q30M PRN IV 11/09/16 15:30 11/23/16 15:29 Aspirin (Ecotrin Tab) 81 mg QAM PO 11/10/16 09:00 12/10/16 08:59 11/14/16 08:03 81 MG Atorvastatin Calcium (Lipitor Tab) 80 mg QPM PO 11/09/16 21:00 12/09/16 20:59 11/13/16 20:53 80 MG Clopidogrel Bisulfate (plAVix TAB) 75 mg QAM PO 11/11/16 09:00 12/11/16 08:59 11/14/16 08:04 75 MG Enoxaparin Sodium (Lovenox Inj) 40 mg QAM SQ 11/13/16 09:00 12/13/16 08:59 11/14/16 08:11 40 MG Docusate Sodium (coLACE CAP) 100 mg BID PO 11/13/16 21:00 12/13/16 20:59 11/13/16 20:53 100 MG Senna (Senokot Tab) 8.6 mg QAM PO 11/14/16 09:00 12/14/16 08:59 Lab Results: Date/Time Source Procedure Growth Status 11/14/16 00:00 Nasal MRSA DNA Surveillance Screen - Final Specimen Negative for MRSA by DNA Probe Complete
[2016-11-14] MEDS: ATORVASTATIN 40 MG TAB PO SCH (21:03)
--- NOTE | 2016-11-14 21:13 | Critical Care Progress Note ---
Critical Care Progress Note Date of Service Nov 14, 2016. Attending Dr. Trujillo Subjective No complaints, no dizziness. Objective Gen. alert and oriented pleasant Cardiovascular S1-S2 Pulmonary lungs clear to auscultation Abdomen soft nondistended nontender Assessment & Plan Impression: #[address] elevation myocardial infarction #2 complete heart block with accelerated junctional rhythm #3 decreased platelets Plan #1. Patient converted to normal sinus rhythm, had bowel movement without going into bradycardia or heart block at approximately 8 AM this morning. Consider stable for downgraded to telemetry #2 platelets increasin from 108 I discussed the case briefly with cardiology. Data Medications: Current Inpatient Medications Medications (Trade) Dose Ordered Sig/Tyrone Route Start Time Stop Time Status Last Admin Dose Admin Acetaminophen (Tylenol Tab) 650 mg Q4H PRN PO 11/09/16 15:30 12/09/16 15:29 11/12/16 12:28 650 MG Ondansetron HCl (Zofran Inj) 4 mg Q6H PRN IV 11/09/16 15:30 12/09/16 15:29 Nitroglycerin (Nitrostat Tab) 0.4 mg UD PRN SL 11/09/16 15:30 12/09/16 15:29 Morphine Sulfate (MoRPHine SULFATE INJ) 2 mg Q30M PRN IV 11/09/16 15:30 11/23/16 15:29 Aspirin (Ecotrin Tab) 81 mg QAM PO 11/10/16 09:00 12/10/16 08:59 11/14/16 08:03 81 MG Atorvastatin Calcium (Lipitor Tab) 80 mg QPM PO 11/09/16 21:00 12/09/16 20:59 11/14/16 21:03 80 MG Clopidogrel Bisulfate (plAVix TAB) 75 mg QAM PO 11/11/16 09:00 12/11/16 08:59 11/14/16 08:04 75 MG Enoxaparin Sodium (Lovenox Inj) 40 mg QAM SQ 11/13/16 09:00 12/13/16 08:59 11/14/16 08:11 40 MG Docusate Sodium (coLACE CAP) 100 mg BID PO 11/13/16 21:00 12/13/16 20:59 11/13/16 20:53 100 MG Senna (Senokot Tab) 8.6 mg QAM PO 11/14/16 09:00 12/14/16 08:59 I & O: 24-Hour Column 11/14/16 08:00 Intake Total 1515 ml Output Total 1100 ml Balance 415 ml Vital Signs: Date Time Temp Pulse Resp B/P Pulse Ox O2 Delivery O2 Flow Rate FiO2 11/14/16 19:41 36.9 91 18 143/86 99 11/14/16 15:54 36.5 85 18 157/91 99 11/14/16 08:00 36.7 90 20 125/63 96 Room Air 11/14/16 08:00 Room Air 11/14/16 08:00 96 Room Air 11/14/16 05:58 73 19 124/76 97 Room Air 11/14/16 04:58 79 17 123/71 97 Room Air 11/14/16 04:50 95 Room Air 11/14/16 04:00 36.8 95 26 130/ Room Air 11/14/16 02:58 88 14 130/76 97 Room Air 11/14/16 01:58 68 16 110/69 95 Room Air 11/14/16 00:58 68 17 112/67 94 Room Air 11/14/16 00:54 95 Room Air 11/13/16 23:58 73 22 122/76 97 Room Air 11/13/16 22:58 77 18 130/79 97 Room Air 11/13/16 21:58 36.8 77 15 129/84 100 Room Air 11/13/16 21:30 95 Room Air
[2016-11-15] VITALS: BP 149/84; PULSE 97; TEMP 36.9; O2SAT 97; O2SAT 99
[2016-11-15 04:00] VITALS: BP 146/88; PULSE 92; TEMP 36.7; O2SAT 97; O2SAT 99
[2016-11-15 04:12] LABS: HEMATOCRIT 33.7 % (42-52); MEAN CELL VOLUME 100.3 fL (80-100); MEAN CORPUSCULAR HEMOGLOBIN 35.1 pg (25-34); PLATELET COUNT 153 K/uL (130-400); RED BLOOD COUNT 3.36 M/uL (4.7-6.1); WHITE BLOOD COUNT 5.59 K/uL (4.8-10.8)
[2016-11-15 07:16] VITALS: BP 151/93; PULSE 93; TEMP 36.7; O2SAT 100
[2016-11-15] MEDS: DOCUSATE SODIUM 100 MG CAP PO SCH (08:43)
[2016-11-15] MEDS: ASPIRIN 81 MG ECTAB PO SCH (08:43)
[2016-11-15] MEDS: SENNA 8.6 MG TAB PO SCH (08:43)
[2016-11-15] MEDS: ENOXAPARIN 40 MG/0.4 ML SYR SQ SCH (08:44)
[2016-11-15] MEDS ORDERED: LISINOPRIL 10 MG TAB PO SCH (09:00)
--- NOTE | 2016-11-15 09:14 | Cardiology Follow-Up ---
Subjective Subjective Date of Service: Nov 15, 2016. Additional Details: Feeling well. Up walking the halls. Wants to go home. Telemetry reviewed - sinus rhythm Problem List Medical Problems: (1) Acute myocardial infarction Status: Acute Review of Systems Constitutional: No chills, No fever Respiratory: No cough, No shortness of breath Cardiac: No chest pain Abdomen: No nausea, No pain, No vomiting Musculoskeletal: No joint pain, No muscle pain Male : No dysuria Psychiatric: No anhedonism, No depression symptoms Heme: No abnormal bleeding/bruising Endo: No fatigue Skin: No rash Objective Vital Signs Last Vital Signs Documentation Date Time Temp Pulse Resp B/P Pulse Ox O2 Delivery O2 Flow Rate FiO2 11/15/16 07:31 Room Air 11/15/16 07:16 36.7 93 18 151/93 100 11/12/16 00:40 3.0 Physical Exam: General Appearance: WD/WN, no apparent distress ENT: hearing grossly normal Neck: supple, no JVD, trachea midline Respiratory/Chest: lungs clear, normal breath sounds, no respiratory distress Cardiovascular: regular rate, rhythm, no gallop, no murmur Abdomen: normal bowel sounds, non tender, soft Extremities: no pedal edema, no calf tenderness, + pertinent finding (right radial artery access site no hematoma. good distal pulse.) Neurologic/Psychiatric: alert, oriented x 3 Skin: normal color Assessment and Plan 1. Late presenting Inferior STEMI/Occluded Mid RCA 2. Complete heart block with accelerated junctional escape rhythm -- now in sinus rhythm with 1st degree AVB 3. Ischemic cardiomyopathy, EF 40-45% Has remained in sinus rhythm overnight. From cardiac standpoint OK for discharge with plan for 48 Hr holter. Can get it placed at our office after discharge At home can gradually resume normal activities. Would refrain from driving for next 48 hrs. Follow-up with me in next 1-2 weeks. Continue ASA/Plavix Continue high-dose statin and TERRY Hold Beta-brigitte for now. Appreciate Hospital medicine care. Medications: Current Inpatient Medications Medications (Trade) Dose Ordered Sig/Tyrone Route Start Time Stop Time Status Last Admin Dose Admin Acetaminophen (Tylenol Tab) 650 mg Q4H PRN PO 11/09/16 15:30 12/09/16 15:29 11/12/16 12:28 650 MG Ondansetron HCl (Zofran Inj) 4 mg Q6H PRN IV 11/09/16 15:30 12/09/16 15:29 Nitroglycerin (Nitrostat Tab) 0.4 mg UD PRN SL 11/09/16 15:30 12/09/16 15:29 Morphine Sulfate (MoRPHine SULFATE INJ) 2 mg Q30M PRN IV 11/09/16 15:30 11/23/16 15:29 Aspirin (Ecotrin Tab) 81 mg QAM PO 11/10/16 09:00 12/10/16 08:59 11/15/16 08:43 81 MG Atorvastatin Calcium (Lipitor Tab) 80 mg QPM PO 11/09/16 21:00 12/09/16 20:59 11/14/16 21:03 80 MG Clopidogrel Bisulfate (plAVix TAB) 75 mg QAM PO 11/11/16 09:00 12/11/16 08:59 11/14/16 08:04 75 MG Enoxaparin Sodium (Lovenox Inj) 40 mg QAM SQ 11/13/16 09:00 12/13/16 08:59 11/15/16 08:44 40 MG Docusate Sodium (coLACE CAP) 100 mg BID PO 11/13/16 21:00 12/13/16 20:59 11/13/16 20:53 100 MG Senna (Senokot Tab) 8.6 mg QAM PO 11/14/16 09:00 12/14/16 08:59 11/15/16 08:43 8.6 MG Lisinopril (Zestril Tab) 10 mg QAM PO 11/15/16 09:00 12/15/16 08:59 Lab Results: 11/15/16 04:00 Test 11/15/16 04:00 Red Blood Count 3.36 M/uL (4.7-6.1) Mean Corpuscular Volume 100.3 fL (80-100) Mean Corpuscular Hemoglobin 35.1 pg (25-34) Mean Corpuscular Hemoglobin Concent 35.0 g/dl (32-36) RDW Standard Deviation 45.7 fL (36.4-46.3) RDW Coefficient of Variation 12.3 % (11.5-14.5) Mean Platelet Volume 9.0 fL (7.4-10.4)
[2016-11-15] MEDS ORDERED: LSN10 PO (09:27)
[2016-11-15] MEDS: CLOPIDOGREL BISULFATE 75 MG TAB PO SCH (09:33)
--- NOTE | 2016-11-15 10:05 | Discharge Instructions ---
Discharge Instructions Admission Reason for Admission: Chest Pain, Shortness Of Breath, Stemi (Raquel Garduno PA-C) Discharge Discharge Diagnosis / Problem: Heart Attack (Raquel Garduno PA-C) Discharge Goals Goal(s): Decrease discomfort, Improve function, Improve disease control (Raquel Garduno PA-C) Activity Recommendations Activity Limitations: as noted below Lifting Limitations: gradually increase as tolerated Exercise/Sports Limitations: gradually increase as tolerated Shower/Bathe: no limitations Driving or Machine Use: May resume after 48 hours . (Raquel Garduno PA-C) Activity Limitations: as noted below (Darrell Rose MD) Instructions / Follow-Up Instructions / Follow-Up Heart Attack: - Please take your medications that are prescribed. Please call your career placement specialist if you would have side effects or difficulty affording medications. - Your aspirin, Plavix, and Atorvastatin has been sent to your pharmacy - [facility] - We will give you a hand prescription for Lisinopril 10 mg daily -- Watch for a cough or any swelling of the arms/legs or face/tongue and report to career placement specialist as this medication may need changed. Home Care: * Take your medications exactly as directed. Don't skip doses. * Remember that recovery after a heart attack takes time. Plan to rest for at lease 4-8 weeks while you recover. Then return to normal activity when your doctor says it's okay. * Ask your doctor about joining a heart rehabilitation program. * Tell your doctor if you are feeling depressed. Feelings of sadness are common after a heart attack, but it is important that you speak to someone if you are feeling overwhelmed by these feelings. * If you are having chest pain, call 911 for an ambulance. Do NOT drive yourself to the hospital. * Ask your family members to learn CPR. * Learn to take your own blood pressure and pulse. Keep a record of your results. Ask your doctor when you should seek emergency medical attention. He or she will tell you which blood pressure reading is dangerous. Lifestyle Changes: * Maintain a healthy weight. Get help to lose any extra pounds. * Cut back on salt. * Limit canned, dried, packaged, and fast foods. * Don't add salt to your food. * Season foods with herbs instead of salt when you cook. * Break the smoking habit. Enroll in a stop-smoking program to improve your chances of success. * Limit fatty foods. * Check your lipid levels regularly. (Your doctor can show you how to do this.) * Build up your activity according to your doctor's recommendation. * Ask your doctor when it's okay to resume sexual activity. * Tell your doctor about any erectile dysfunction (ED) medication you are taking. Some ED medications are not safe if you take certain heart medications. * Try to manage stress. Follow Up: It is important for you to keep your follow up appointments with your medical provider. FOLLOW UP WITH INTERIOR DESIGN COORDINATOR IN 1-2 WEEKS FOR PLAN TO GET HOLTER MONITOR ( MONITORS HEART RATE) Plan to participate in cardiac rehab and this can be established through your career placement specialist. (Raquel Garduno, LEXY) Instructions / Follow-Up 1. ACTIVITY RECOMMENDATIONS following your heart catheterization: Excess manipulation of the RIGHT wrist should be avoided for the next 24-48 hours. * No lifting over 2 pounds (approximately a 1/2 gallon of milk) with the utilized arm for 24 hours. * No strenuous activity (going to the gym, working in the garage or the yard, heavy lifting over 15-20 pounds, etc) until seen by Dr. Adan from cardiology. * You may shower at this time; however, do not take a tub bath or submerge the puncture site in water for the next 3 days. * Do not operate any motorized equipment for 2 days (that includes driving). SPECIAL CARE INSTRUCTIONS: The site may be slightly bruised and sore following your procedure. Should any of the following occur, contact the Dr. who performed your procedure. 1. Redness/inflammation, swelling, chills, or fever, or colored drainage at procedure site within 3-7 days after your procedure. 2. Coldness, discoloration, ongoing numbness, severe pain, or swelling. Expect mild tingling of hand and tenderness at the puncture site for up to three days. If this persists beyond three days, or other symptoms develop, notify the Dr. who performed your procedure. BLEEDING: If the procedure site on your wrist begins to bleed, do not panic 1. Place 1 or 2 fingers firmly just slightly above the insertion site to stop the bleeding. You may be able to feel your pulse as you hold pressure. 2. Lift your finger after 5 minutes to see if the bleeding has stopped. 3. Once the bleeding has stopped, gently wipe the wrist area clean with a bandage. * If the bleeding from your wrist does not stop after 10 minutes, or if there is a large amount of bleeding or spurting, call 911 (do not drive yourself to the hospital). SKIN IRRITATION: * You may experience some redness and/or swelling in the area where radiation was administered. If any skin irritation occurs, please contact your family physician. 2. Congestive heart failure instructions: Call 911 and go to the Emergency Room if: * You have tightness or pain in your chest that does not go away with rest or Nitroglycerin * You are very short of breath even with rest Call your doctor if any of the following symptoms or problems start or get worse: * Shortness of breath or difficulty breathing * Wake up at night short of breath * Chest pain * Cough * Swelling of your hands, fee, or legs * More fatigued or tired with your normal activity * Palpitations - sudden fast heart beats WEIGHT * Weigh yourself every morning after using the bathroom. * Use the same scale. * Wear the same amount of clothing. * Write your weight down on your chart. * Call your doctor if you gain more than 2-3 pounds in 1-2 days* MEDICATIONS * Use this discharge instruction sheet for instructions. * Take your medications at the time your doctor ordered. * Do not skip a dose of your medicines. * If you miss a dose of medicine, take as soon as possible, but DO NOT DOUBLE A DOSE. * Read your medicine information when you get home. * Know all of the side effects of your medicine. * Call your doctor's office if you have any side effects. * Be sure all of your doctors know what medicine and herbs you take (including cold, flu, and herbal medicine). * Pain Medicine: If you do not get relief from your pain, please call your doctor for help. Take the following with you to your follow-up doctor appointments: * Weight Chart * Medication List * List of questions Do not drink excessive alcohol, beer or wine. (Darrell Rose MD) Current Hospital Diet Patient's current hospital diet: AHA Diet (Heart Healthy) (Raquel Garduno, PA-C) Discharge Diet Recommended Diet: AHA Diet (Heart Healthy) (Raquel Garduno PA-C) Fluid Restriction: 1500 ml (6 cups) (Darrell Rose MD) Pending Studies Studies pending at discharge: no (Raquel Garduno PA-C) Laboratory Results Hemoglobin A1c Test 11/10/16 03:56 Range/Units Estimated Average Glucose 103 mg/dl Hemoglobin A1c 5.2 4.5-5.6 % Lipid Panel Test 11/10/16 03:56 Range/Units Triglycerides Level 84 0-150 mg/dl Cholesterol Level 160 0-200 mg/dl HDL Cholesterol 66 mg/dl Cholesterol/HDL Ratio 2.4 LDL Cholesterol, Calculated 77 mg/dl (Raquel Garduno PA-C) Medical Emergencies . Who to Call and When: Medical Emergencies: If at any time you feel your situation is an emergency, please call 911 immediately. Call 911 immediately or go to your nearest Emergency Room if you experience any of the following: Warning Signs and Symptoms of a Heart Attack * Chest pain that is not relieved by medication * Shortness of breath . (Raquel Garduno PA-C) Non-Emergent Contact Non-Emergency issues call your: Certified Prosthetist/Orthotist Call Non-Emergent contact if: your pain is worsening, you have any medication questions . (Raquel Garduno PA-C) . "Provider Documentation" section prepared by Raquel Garduno. (Raquel Garduno PA-C) AMI Core Measures Reason no ASA as I/P: Treatment provided - N/A Reason no ASA at D/C: Treatment provided - N/A Reason no statin as I/P: Treatment provided - N/A Reason no statin at D/C: Treatment provided - N/A (Raquel Garduno PA-C) VTE Core Measure Inpt VTE Proph given/why not?: Other Anticoagulation (heparin IV) (Raquel Garduno PA-C)
[2016-11-15 10:21] VITALS: BP 151/93; PULSE 93; TEMP 36.7; O2SAT 100
[2016-11-15] MEDS ORDERED: NTRGSL/4 UT (11:18)
--- NOTE | 2016-11-15 17:45 | Discharge Summary ---
Discharge Summary Admission Date: Nov 09, 2016 at 15:31 Discharge Date: Nov 11, 2016 Discharge Disposition: Home Principal Diagnosis: STEMI Procedures: 1. Cardiac Catheterization Consultations: 1. Cardiology - Heart Catheterization (Raquel Garduno PA-C) Problems/Secondary Diagnoses: 1. HTN 2. acute systolic/diastolic CHF 2nd to acute NM 3. transient complete heart block 2nd to inferior wall NM - resolved Procedures: 1. echocardiogram - * Mildly reduced overall left ventricular systolic function. EF 45%. Basal inferior akinesis of the left ventricle. Basal septal and posterior hypokinesis. * Mild concentric left ventricular hypertrophy. * Left ventricular diastolic dysfunction. * Moderate right atrial dilatation. * Mild right ventricular dilatation with mild right ventricular systolic dysfunction. * Moderate mitral regurgitation. * Trace pulmonic regurgitation. * Trace tricuspid regurgitation. * Elevated central venous pressure. 2. Left Heart Catheterization - Ru Adan MD Findings: LM - Normal LAD - Moderate sized vessel, supplies apex. Mid 30% stenosis, distal luminal irregularities. Small 1st diagonal with 70% ostial stenosis Circumflex - Moderate sized, tortuous, non-dominant. Luminal irregularities RCA - Completely occluded at the beginning of the mid segment. No distal collaterals (Darrell Rose MD) Medication Reconciliation New Medications: Nitroglycerin (Nitrostat) 0.4 Mg Tab 0.4 MG UT every 5 minutes PRN for chest pain, #1 BTL 0 Refills max 3 tablets in 15 minutes Aspirin (Aspirin EC Low Dose) 81 Mg Ectab 81 MG PO QAM, #90 DOSE 3 Refills Atorvastatin (Atorvastatin Calcium) 40 Mg Tab 80 MG PO QPM, #90 TAB 3 Refills Clopidogrel Bisulfate (Clopidogrel) 75 Mg Tab 75 MG PO QAM, #90 TAB 3 Refills Lisinopril (Zestril) 10 Mg Tab 10 MG PO QAM, #30 TAB Discharge Exam Review of Systems: Constitutional: No chills, No fever Eyes: No worsening of vision ENT: No nasal symptoms, No sore throat, No trouble swallowing Respiratory: No cough, No dyspnea at rest, No dyspnea on exertion, No shortness of breath Cardiovascular: No chest pain Abdomen: No constipation, No diarrhea, No nausea, No pain, No vomiting Musculoskeletal: No calf pain, No swelling Genitourinary - Male: No dysuria Endocrine: No fatigue Integumentary: No rash (Raquel Garduno PA-C) Hospital Course ADMISSION: Mr Alejandro is a 61 yo male with no past medical or surgical history, ex-smoker (15 pack-years), currently chews tobacco who does not have any routine preventative medical care. Presented to his PCP today after developing what felt like heartburn yesterday and shortness of breath, EKG showed inferior STEMI, he was given 324mg aspirin and transferred to the ER. His symptoms started yesterday approximately 9:30am with shortness of breath and throat tightness that occurred while pulling a deer he had shot. The throat tightness he related to breathing cold air or heartburn pain. He took some tums and think it helped a little, exacerbated by lying down and no worse on exertion , severity at worse /10, the pain lasted throughout the entire yesterday without much waxing and waning and he has not had a recurrence today. His shortness of breath came on initially at at the same time, this was worse on even mild exertion and occurred at rest. He denies any orthopnea or PND that night. This morning he felt generally more tired than usual but denies shortness of breath, chest pain, orthopnea, PND, claudication or palpitations. HOSPITAL COURSE: STEMI S/P Catheterization (11/10/16) with Complete Occlusion RCA: Currently NSR with 1st degree AV Block - Assessment - Initially patient with complete heart block that transitioned to 2nd degree Wenckebach and is now NSR with 1st degree AV block -- Noted runs of asystole when in complete block and was moved to ICU for dobutamine gtt. Patient slowing converted to NSR but at this time EKG reveals 1st degree AV block -- Echo - EF 40-45% - D/C'd with ASA 81 mg daily and Plavix 75 mg daily - D/C'd with Atorvastatin 80 mg daily - BB has been stopped in setting of block and will not be discharged with - Started Lisinopril 10 mg daily - Cardiology followed - plan to follow up with patient and perform heart monitor at next visit -- Plan for medical management of occlusion Disposition: - Patient is chest pain free and without acute complaints. Vital signs stable and EKG findings non-emergent. Patient is suitable for discharge home with cardiology follow-up. Total Time Spent: Greater than 30 minutes This includes examination of the patient, discharge planning, medication reconciliation, and communication with other providers. (Raquel Garduno PA-C) Attending Attestation: Patient seen/examined, chart reviewed, and care plan d/w LUKE Garduno on the day of discharge. I agree with her discharge summary as outlined. Pleasant 61yo male with history of HTN who had presented to his PCP's office with c/o heartburn, SOB, HARRIS, and fatigue. Symptoms had been present for about 24 hours. EKG at his PCP's office suggested inferior wall STEMI and he was emergently sent to [facility]. Heart alert was called upon his arrival and he was taken to the cardiac general production laborer where he was found to have a stenotic RCA. His STEMI was felt to be subacute in nature and thus no angioplasty was performed nor any stent deployed. His hospitalization was complicated by complete heart block due to the RCA occlusion / NM. Fortunately he did not require any temporary pacing device nor a permanent pacemaker. Beta brigitte WAS discontinued for that reason. His echo also showed depressed EF at 40-45% but he did NOT demonstrate any decompensated CHF. He otherwise will continue with aspirin, plavix, statin, and TERRY along with PRN nitroglycerin. Vitals and labs otherwise remained stable while here. He will complete a 48-hour ambulatory monitor to ensure no recurrent AV block. exam at discharge - gen - NAD neck - no JVD heart - RRR, s1, s2, no murmur lungs - CTA b/l abd - soft, NT, ND, BS+, no HSM ext - right wrist without hematoma; pulse right wrist 2+; foot pulses 2+b/l, no edema At discharge he received acute NM AND CHF instructions. Darrell Rose MD (Darrell Rose MD) Discharge Instructions Please refer to the electronic Patient Visit Report (Discharge Instructions) for additional information. (Raquel Garduno PA-C) Follow-Up 1. Dr. Homer Adler on MondayNov 22 at 10:[address] Ru Adan, [facility], within 2 weeks (Darrell Rose MD) Additional Copies To Homer Rhoades M.D.; Ru Adan MD
== END 2016-11-15 11:55 | disposition home or self-care (01) | DRG 281 ==
LOC: ENRESERVTM → ENRESERVDT → C.ED 13:58 → EDBD 13:58 → C.2T 15:31 → C.MSICU 11-12 00:40 → C.2T 11-14 11:58
PROVIDERS: ADMIT Hospitalist; ATTEND Internal Medicine
PROC: B2111ZZ Fluoroscopy of Multiple Coronary Arteries using Low Osmolar Contrast (ICD-10-PCS; 2016-11-10)
PROC: 4A023N7 Measurement of Cardiac Sampling and Pressure, Left Heart, Percutaneous Approach (ICD-10-PCS; principal; 2016-11-10 13:00)
DX: I21.19 ST elevation (STEMI) myocardial infarction involving other coronary artery of inferior wall (principal); I44.2 Atrioventricular block, complete; F17.220 Nicotine dependence, chewing tobacco, uncomplicated; I44.0 Atrioventricular block, first degree; I10 Essential (primary) hypertension; D69.6 Thrombocytopenia, unspecified; I25.10 Atherosclerotic heart disease of native coronary artery without angina pectoris; I25.5 Ischemic cardiomyopathy; K59.00 Constipation, unspecified; Z79.82 Long term (current) use of aspirin

== ENCOUNTER → 2017-01-05 | Outpatient (CLI) | payer OTHER ==
[~2017-01-05] MED LIST: ASPEC81 PO; LPT40 PO; LSN10 PO; NTRGSL/4 UT; PLV75 PO
== END | disposition home or self-care (01) ==
LOC: C.LABPVFM 08:22
PROVIDERS: ATTEND Family Medicine
DX: I25.10 Atherosclerotic heart disease of native coronary artery without angina pectoris (principal)

== ENCOUNTER → 2017-07-28 | Outpatient (CLI) | payer OTHER ==
[2017-07-28 12:45] LABS: ALT/SGPT 40 U/L (12-78); AST/SGOT 18 U/L (15-37); BLOOD UREA NITROGEN 23 mg/dl (7-18); BUN/CREATININE RATIO 19.4 (10-20); CALCIUM 9.1 mg/dl (8.5-10.1); CARBON DIOXIDE 28 mmol/L (21-32); CHLORIDE 106 mmol/L (98-107); GLUCOSE 97 mg/dl (70-99); POTASSIUM 4.4 mmol/L (3.5-5.1); SODIUM 140 mmol/L (136-145)
[2017-07-28 12:47] LABS: ALB/GLOB RATIO 1.4 (0.9-2); ALKALINE PHOSPHATASE 103 U/L (45-117); CHOLESTEROL 108 mg/dl (0-200); CHOLESTEROL/HDL RATIO 1.9; HDL CHOLESTEROL 57 mg/dl; LDL CHOLESTEROL CALCULATED 33 mg/dl; TRIGLYCERIDES 92 mg/dl (0-150); VERY LOW DENSITY LIPOPROT CALC 18 mg/dl
== END | disposition home or self-care (01) ==
LOC: C.LABPVFM 07:31
PROVIDERS: ATTEND Family Medicine
DX: E78.5 Hyperlipidemia, unspecified (principal); I25.10 Atherosclerotic heart disease of native coronary artery without angina pectoris; Z23 Encounter for immunization